=== PATIENT | female | born 1940 | race Caucasian/White ===

== ENCOUNTER → 2016-08-08 | Outpatient (CLI) | payer MEDICARE, BC ==
[~2016-08-08] MED LIST: ALLOPURINOL PO; ALLOPURINOL300 MG PO; ANTIVERT 25MG25 MG PO; APRESOLINE 10MG10 MG PO; APRESOLINE 25MG25 MG PO; ASPIR-LOW81 MG PO; ASPIRIN E.C. 8181 MG PO; BENICAR40 MG PO; BUPROPION300 MG PO; CAL-CITRATE PLU1 TAB PO; CATAPRES 0.1MG0.1 MG PO; CATAPRES-TTS 10.1 M1 TD; CELEXA PO; CEPHALEXIN500 M1 PO; CIPRO 500MG TA500 MG PO; CLOPIDOGREL PO; COLACE 100100 MG/CAP PO; COREG 25MG25 MG/TAB PO; COREG12.5 MG PO; COUMADIN 1MG1 MG/TAB PO; DARVOCET N 101 UDTAB PO; DARVOCET-N-101 UDTAB PO; DETROL LA4 PO; DIOVAN 160MG160 MG PO; FAMILY PHARMAC0.4 MG PO; FOLIC ACID 40400 MCG PO; FUROSEMIDE20 MG PO; GLUCOSAMINE SULFATE PO; HCTZ 25MG25 MG PO; HYTRIN1 MG PO; HYTRIN2 M1 PO; Hydrocodone PO; IMDUR 60MG60 MG/TAB PO; IMDUR PO; IMDUR120 MG PO; ISOSORBIDE MONO PO; ISOSORBIDE MONO60 MG PO; K-DUR20 MEQ PO; K-LOR CON PO; K-TAB20 PO; LABETALOL300 MG PO; LAMICTAL 100MG100 MG PO; LAMICTAL1 TAB PO; LASIX 20MG TABL20 MG PO; LASIX 40MG TABL40 MG PO; MELOXICAM15 MG PO; MILLIPRED DP5 MG PO; MIRALAX PA17 GM/Dose PO; MONOKET20 MG PO; NITROQUICK0.4 MG SL; NITROSTAT0.4 MG/TAB SL; NORCO 325 MG-101 TAB PO; NORCO 325 MG-51 TAB PO; NORMODYNE300 MG PO; PAXIL 20MG20 MG PO; PERCOCET 325 MG1 TA2 PO; PHENERGAN25 MG/ML IV; PLAVIX 75MG TAB75 MG PO; POTASSIUM CHLO10 ME3 PO; PRINIVIL10 MG PO; PRINIVIL20 MG PO; PRINIVIL40 MG PO; PROCARDIA XL 3030 MG PO; PROVENTIL0.09 MG/A1 IH; Phenergan PO; ROXICODONE 55 MG/TAB PO; SYNTHROID0.05 MG/TA PO; TERAZOSIN HCL PO; TRANDATE300 MG PO; TRICOR145 MG PO; TRILIPIX 135MG PO; ULTRAM 50MG TAB50 MG PO; VENTOLIN0.09 MG IH; VITAMIN D1000 IU PO; WELLBUTRIN PO; WELLBUTRIN SR150 M1 PO; WELLBUTRIN XL150 MG PO; WELLBUTRIN XL300 M1 PO; WELLBUTRIN XL300 MG PO; ZITHROMAX 250M250 MG PO; ZOFRAN4 M1 PO; trilipix PO
== END ==
LOC: BHSO 14:47
DX: F31.81 Bipolar II disorder (principal)

== ENCOUNTER 2016-09-09 20:12 | Emergency (ER) | payer MEDICARE, BC ==
[~2016-09-09] VITALS: Ht 157.5 cm; Wt 58.2 kg
[~2016-09-09 20:12] MED LIST changes: -DIOVAN 160MG160 MG PO; -K-DUR20 MEQ PO; -MONOKET20 MG PO; -PERCOCET 325 MG1 TA2 PO; -ROXICODONE 55 MG/TAB PO; -SYNTHROID0.05 MG/TA PO; -ULTRAM 50MG TAB50 MG PO; -VENTOLIN0.09 MG IH
[2016-09-09 20:15] VITALS: TEMP 97.1
[2016-09-09] MEDS ORDERED: MONOKET20 MG PO (20:24)
[2016-09-09] MEDS ORDERED: SYNTHROID0.05 MG/TA PO (20:25)
[2016-09-09] MEDS ORDERED: VENTOLIN0.09 MG IH (20:26)
[2016-09-09 20:56] LABS: BASO % 0.3 % (0.0-2.0); EOS # 0.3 (0.0-0.7); EOS % 2.2 % (0-4.0); GRAN # 10.3 (1.4-6.5); GRAN % 80.8 % (42.2-75.2); MEAN CELL VOLUME 92 fl (80.0-100.0); MEAN CORPUSCULAR HGB CONC 34 g/dl (33.0-37.0); MEAN PLATELET VOLUME 10.9 fl (7.4-10.4); MONO % 8.1 % (1.7-9.3); PLATELET COUNT 230 K/mm3 (130-400); RED BLOOD COUNT 3.77 M/mm3 (4.10-5.30); REDCELL DISTRIBUTION WIDTH-CV 11.7 % (11.5-14.5); WHITE BLOOD COUNT 12.7 K/mm3 (4.8-10.8)
[2016-09-09 20:59] LABS: HEMATOCRIT 34.5 % (37.0-47.0); HEMOGLOBIN 11.7 g/dl (12.5-16.0); MEAN CORPUSCULAR HEMOGLOBIN 31 pg (27.0-31.0)
[2016-09-09 21:28] LABS: CALCIUM 9.5 mg/dL (8.4-10.2); CREATININE, serum 1.33 mg/dL (0.52-1.25)
[2016-09-09 22:21] LABS: PH 8 (5-8); SQUAMOUS EPITHELIAL None Seen /hpf; URINE APPEARANCE Cloudy; URINE BACTERIA Rare /hpf; URINE BILIRUBIN Negative (NEGATIVE); URINE BLOOD 2+ (NEGATIVE); URINE COLOR Yellow; URINE GLUCOSE Negative (NEGATIVE); URINE KETONE Negative (NEGATIVE); URINE RBC >50 /hpf; URINE UROBILINOGEN Negative (NEGATIVE)
[2016-09-09] MEDS ORDERED: ROXICODONE 55 MG/TAB PO (22:48)
[2016-09-09 23:02] VITALS: BP 162/70; PULSE 86
[2017-03-02] MEDS ORDERED: LASIX 20MG TABL20 MG PO (08:55)
[2017-03-02] MEDS ORDERED: IMDUR 60MG60 MG/TAB PO (08:59)
[2017-03-02] MEDS ORDERED: PROCARDIA XL 3030 MG PO (09:01)
[2017-03-02] MEDS ORDERED: DIOVAN 160MG160 MG PO (09:02)
== END 2016-09-09 23:05 | disposition home or self-care (01) ==
LOC: COL.ER 20:12
PROVIDERS: Emergency Medicine
DX: R10.31 Right lower quadrant pain (principal); N28.89 Other specified disorders of kidney and ureter; Z90.5 Acquired absence of kidney; I10 Essential (primary) hypertension
CPT/HCPCS: J1170; J2270; J2405; J7040

== ENCOUNTER 2016-09-21 05:32 | Day surgery (SDC) | payer MEDICARE, BC ==
[~2016-09-21] VITALS: Ht 157.5 cm; Wt 59.3 kg
[2016-09-21] VITALS (8 sets, daily range): BP systolic 132–140; BP diastolic 46–59; PULSE 62–77; TEMP 97.6–97.8
[~2016-09-21 05:32] MED LIST changes: +MONOKET20 MG PO; +ROXICODONE 55 MG/TAB PO; +SYNTHROID0.05 MG/TA PO; +VENTOLIN0.09 MG IH
[2016-09-21] MEDS ORDERED: WELLBUTRIN SR150 M1 PO (06:30)
[2016-09-21] MEDS ORDERED: K-DUR20 MEQ PO (06:35)
[2017-03-02] MEDS ORDERED: LASIX 20MG TABL20 MG PO (08:55)
[2017-03-02] MEDS ORDERED: IMDUR 60MG60 MG/TAB PO (08:59)
[2017-03-02] MEDS ORDERED: PROCARDIA XL 3030 MG PO (09:01)
[2017-03-02] MEDS ORDERED: DIOVAN 160MG160 MG PO (09:02)
== END 2016-09-21 12:30 | disposition home or self-care (01) ==
LOC: SDCO 05:32
DX: Q62.11 Congenital occlusion of ureteropelvic junction (principal); I10 Essential (primary) hypertension; Z86.14 Personal history of Methicillin resistant Staphylococcus aureus infection; Z86.73 Personal history of transient ischemic attack (TIA), and cerebral infarction without residual deficits; Z95.5 Presence of coronary angioplasty implant and graft; Z79.82 Long term (current) use of aspirin; Z79.02 Long term (current) use of antithrombotics/antiplatelets; Z79.899 Other long term (current) drug therapy
CPT/HCPCS: C1769; C2617; J0690; J1100; J1940; J2405; J2704; J3010; J7120

== ENCOUNTER → 2016-10-10 | Outpatient (CLI) | payer MEDICARE, BC ==
[~2016-10-10] MED LIST changes: +DIOVAN 160MG160 MG PO; +K-DUR20 MEQ PO; +PERCOCET 325 MG1 TA2 PO; +ULTRAM 50MG TAB50 MG PO
== END ==
LOC: BHSO 14:04
DX: F41.1 Generalized anxiety disorder (principal)

== ENCOUNTER → 2016-11-20 | Outpatient (CLI) | payer MEDICARE, BC | LOC: BHSO 15:17 | DX: F31.73 Bipolar disorder, in partial remission, most recent episode manic (principal) ==

== ENCOUNTER 2016-11-22 18:49 | Emergency (ER) | payer MEDICARE, BC ==
[~2016-11-22] VITALS: Ht 154.9 cm; Wt 62.3 kg
[~2016-11-22 18:49] MED LIST changes: -DIOVAN 160MG160 MG PO; -PERCOCET 325 MG1 TA2 PO; -ULTRAM 50MG TAB50 MG PO
[2016-11-22 18:52] VITALS: TEMP 97.9
[2016-11-22 19:54] LABS: BASO % 0.3 % (0.0-2.0); EOS # 0.2 (0.0-0.7); EOS % 2.5 % (0-4.0); GRAN # 5.7 (1.4-6.5); GRAN % 64.7 % (42.2-75.2); LYMPH # 1.7 (1.2-3.4); LYMPH % 19.2 % (20.0-51.0); MEAN CELL VOLUME 92 fl (80.0-100.0); MEAN CORPUSCULAR HGB CONC 34 g/dl (33.0-37.0); MEAN PLATELET VOLUME 11.5 fl (7.4-10.4); MONO % 11.7 % (1.7-9.3); PLATELET COUNT 230 K/mm3 (130-400); RED BLOOD COUNT 3.55 M/mm3 (4.10-5.30); REDCELL DISTRIBUTION WIDTH-CV 12.4 % (11.5-14.5); WHITE BLOOD COUNT 8.8 K/mm3 (4.8-10.8)
[2016-11-22 19:58] LABS: HEMATOCRIT 32.5 % (37.0-47.0); MEAN CORPUSCULAR HEMOGLOBIN 31 pg (27.0-31.0)
[2016-11-22 20:05] LABS: ADJUSTED CALCIUM 8.7 mg/dL (8.4-10.2); ALANINE AMINOTRANSFERASE 22 U/L (9-52); ALKALINE PHOSPHATASE 114 U/L (50-136); ANION GAP 11 mmol/L (7-16); BILIRUBIN,TOTAL 0.5 mg/dL (0.0-1.0); BLOOD UREA NITROGEN 46 mg/dL (7-17); CALCIUM 8.7 mg/dL (8.4-10.2); CARBON DIOXIDE 21 mmol/L (22-30); CHLORIDE 91 mmol/L (98-107); CREATININE, serum 1.41 mg/dL (0.52-1.25); GLUCOSE 86 mg/dL (74-106); LIPASE 107 U/L (23-300); POTASSIUM 4.3 mmol/L (3.4-5.0); SODIUM 123 mmol/L (137-145); TOTAL PROTEIN 6.8 gm/dL (6.4-8.2)
[2016-11-22 20:18] LABS: TROPONIN-I < 0.012 ng/mL (0.000-0.034)
[2016-11-22] MEDS ORDERED: ULTRAM 50MG TAB50 MG PO (22:07)
[2016-11-22] MEDS ORDERED: PERCOCET 325 MG1 TA2 PO (22:07)
[2016-11-22 22:59] VITALS: BP 179/73; PULSE 66
[2017-03-02] MEDS ORDERED: LASIX 20MG TABL20 MG PO (08:55)
[2017-03-02] MEDS ORDERED: IMDUR 60MG60 MG/TAB PO (08:59)
[2017-03-02] MEDS ORDERED: PROCARDIA XL 3030 MG PO (09:01)
[2017-03-02] MEDS ORDERED: DIOVAN 160MG160 MG PO (09:02)
== END 2016-11-22 23:03 | disposition home or self-care (01) ==
LOC: COL.ER 18:49
PROVIDERS: Emergency Medicine
DX: I20.8 Other forms of angina pectoris (principal); E87.1 Hypo-osmolality and hyponatremia; I25.10 Atherosclerotic heart disease of native coronary artery without angina pectoris; I10 Essential (primary) hypertension; J45.909 Unspecified asthma, uncomplicated; Z95.5 Presence of coronary angioplasty implant and graft; Z98.890 Other specified postprocedural states
CPT/HCPCS: J1170; J7030

== ENCOUNTER → 2016-12-27 | Outpatient (CLI) | payer MEDICARE, BC ==
[~2016-12-27] VITALS: Ht 154.9 cm; Wt 62.3 kg
[~2016-12-27] MED LIST changes: +DIOVAN 160MG160 MG PO; +PERCOCET 325 MG1 TA2 PO; +ULTRAM 50MG TAB50 MG PO
[2016-12-27 12:28] VITALS: BP 120/40; PULSE 60
[2016-12-27 13:20] VITALS: BP 137/63; PULSE 62
[2016-12-27 14:00] VITALS: BP 138/65; PULSE 65
== END ==
LOC: COL.RAD 11:29
DX: M19.011 Primary osteoarthritis, right shoulder (principal); M94.8X1 Other specified disorders of cartilage, shoulder; S43.491A Other sprain of right shoulder joint, initial encounter; M25.711 Osteophyte, right shoulder; M25.411 Effusion, right shoulder; M75.21 Bicipital tendinitis, right shoulder; M62.511 Muscle wasting and atrophy, not elsewhere classified, right shoulder; S22.080A Wedge compression fracture of T11-T12 vertebra, initial encounter for closed fracture; M70.61 Trochanteric bursitis, right hip; S32.030A Wedge compression fracture of third lumbar vertebra, initial encounter for closed fracture; M75.81 Other shoulder lesions, right shoulder; M75.51 Bursitis of right shoulder; I34.0 Nonrheumatic mitral (valve) insufficiency; M67.813 Other specified disorders of tendon, right shoulder; Z96.641 Presence of right artificial hip joint; Z90.12 Acquired absence of left breast and nipple; Z96.652 Presence of left artificial knee joint; Z90.5 Acquired absence of kidney; Z98.890 Other specified postprocedural states; Z98.1 Arthrodesis status; Z95.828 Presence of other vascular implants and grafts; Z85.3 Personal history of malignant neoplasm of breast; Z90.710 Acquired absence of both cervix and uterus; Z85.828 Personal history of other malignant neoplasm of skin
CPT/HCPCS: G9654; J2704; J3010; J7120

== ENCOUNTER → 2017-01-08 | Outpatient (CLI) | payer MEDICARE, BC | LOC: BHSO 15:24 | DX: F33.1 Major depressive disorder, recurrent, moderate (principal) ==

== ENCOUNTER → 2017-01-29 | Outpatient (CLI) | payer MEDICARE, BC | LOC: COL.RAD 13:25 | DX: M25.511 Pain in right shoulder (principal) ==

== ENCOUNTER 2017-03-08 08:00 | Outpatient (RCR) | payer MEDICARE, BC ==
[2017-03-02 08:53] VITALS: BP 143/50; PULSE 63; TEMP 98
[2017-03-03 08:23] VITALS: BP 123/48; PULSE 59; TEMP 98
[2017-03-04 08:19] VITALS: BP 140/57; PULSE 60; TEMP 97.6
[2017-03-05 08:42] VITALS: BP 119/68; PULSE 61; TEMP 97.8
[2017-03-06 08:21] VITALS: BP 144/69; PULSE 60; TEMP 98
[2017-03-07 08:10] VITALS: BP 118/55; PULSE 67; TEMP 98.2
[~2017-03-08] VITALS: Ht 154.9 cm; Wt 61.3 kg
[2017-03-08 08:23] VITALS: BP 129/51; PULSE 63; TEMP 97.7
== END 2017-03-08 08:55 | disposition home or self-care (01) ==
LOC: EUO 08:00
DX: N39.0 Urinary tract infection, site not specified (principal)
CPT/HCPCS: J1335

== ENCOUNTER → 2017-03-27 | Outpatient (CLI) | payer MEDICARE, BC | LOC: BHSO 13:06 | DX: F31.73 Bipolar disorder, in partial remission, most recent episode manic (principal) ==

== ENCOUNTER → 2017-06-19 | Outpatient (CLI) | payer MEDICARE, BC ==
[~2017-06-19] MED LIST changes: +CEFTIN 250250 MG/TAB PO; +ZOFRAN 4MG T4 MG/TAB PO
== END ==
LOC: BHSO 13:19
DX: F41.1 Generalized anxiety disorder (principal)

== ENCOUNTER 2017-07-23 19:02 | Emergency (ER) | payer MEDICARE, BC ==
[~2017-07-23] VITALS: Ht 154.9 cm; Wt 61.4 kg
[2017-07-23 19:04] VITALS: TEMP 98.1
[2017-07-23 19:38] LABS: BASO % 0.3 % (0.0-2.0); EOS # 0.2 (0.0-0.7); GRAN # 5.5 (1.4-6.5); LYMPH % 14.1 % (20.0-51.0); MEAN CELL VOLUME 94 fl (80.0-100.0); MEAN CORPUSCULAR HGB CONC 33 g/dl (33.0-37.0); MEAN PLATELET VOLUME 12.7 fl (7.4-10.4); MONO # 0.5 (0.1-0.6); MONO % 7.2 % (1.7-9.3); PLATELET COUNT 168 K/mm3 (130-400); RED BLOOD COUNT 3.73 M/mm3 (4.10-5.30); REDCELL DISTRIBUTION WIDTH-CV 12.6 % (11.5-14.5)
[2017-07-23 19:39] LABS: HEMATOCRIT 35.2 % (37.0-47.0); HEMOGLOBIN 11.6 g/dl (12.5-16.0); MEAN CORPUSCULAR HEMOGLOBIN 31 pg (27.0-31.0)
[2017-07-23 19:47] LABS: ALANINE AMINOTRANSFERASE 30 U/L (9-52); ALBUMIN 4.2 gm/dL (3.5-5.0); ALKALINE PHOSPHATASE 135 U/L (50-136); ANION GAP 9 mmol/L (7-16); AST,SGOT 25 U/L (15-37); BILIRUBIN,TOTAL 0.5 mg/dL (0.0-1.0); BLOOD UREA NITROGEN 23 mg/dL (7-17); CALCIUM 9.4 mg/dL (8.4-10.2); CARBON DIOXIDE 25 mmol/L (22-30); CHLORIDE 103 mmol/L (98-107); CREATININE, serum 1.28 mg/dL (0.52-1.25); GLUCOSE 109 mg/dL (74-106); POTASSIUM 4.3 mmol/L (3.4-5.0); SODIUM 137 mmol/L (137-145); TOTAL PROTEIN 7.2 gm/dL (6.4-8.2)
[2017-07-23 19:59] LABS: TROPONIN-I < 0.012 ng/mL (0.000-0.034)
[2017-07-23 21:23] VITALS: BP 179/80; PULSE 66
== END 2017-07-23 21:42 | disposition home or self-care (01) ==
LOC: COL.ER 19:02
PROVIDERS: Emergency Medicine
DX: S06.0X0A Concussion without loss of consciousness, initial encounter (principal); S20.219A Contusion of unspecified front wall of thorax, initial encounter; S00.83XA Contusion of other part of head, initial encounter; I10 Essential (primary) hypertension; W01.198A Fall on same level from slipping, tripping and stumbling with subsequent striking against other object, initial encounter; Y92.009 Unspecified place in unspecified non-institutional (private) residence as the place of occurrence of the external cause

== ENCOUNTER → 2017-08-03 | Outpatient (CLI) | payer MEDICARE, BC | LOC: COL.CARD 09:53 | DX: S06.0X9A Concussion with loss of consciousness of unspecified duration, initial encounter (principal); W19.XXXA Unspecified fall, initial encounter; Z53.8 Procedure and treatment not carried out for other reasons ==

== ENCOUNTER → 2017-08-10 | Outpatient (CLI) | payer MEDICARE, BC | LOC: COL.CARD 09:58 | DX: S06.0X9A Concussion with loss of consciousness of unspecified duration, initial encounter (principal); W19.XXXA Unspecified fall, initial encounter ==

== ENCOUNTER → 2017-08-28 | Outpatient (CLI) | payer MEDICARE, BC | LOC: BHSO 13:19 | DX: F33.41 Major depressive disorder, recurrent, in partial remission (principal) | CPT/HCPCS: G0463 ==

== ENCOUNTER → 2017-09-24 | Outpatient (CLI) | payer MEDICARE, BC | LOC: MC.RAD 08-23 13:00 | DX: N63.11 Unspecified lump in the right breast, upper outer quadrant (principal); Z85.3 Personal history of malignant neoplasm of breast ==

== ENCOUNTER → 2017-12-07 | Outpatient (CLI) | payer MEDICARE, BC | LOC: BHSO 10:44 | DX: F33.41 Major depressive disorder, recurrent, in partial remission (principal) | CPT/HCPCS: G0463 ==

== ENCOUNTER → 2017-12-31 | Outpatient (CLI) | payer MEDICARE, BC | LOC: MC.RAD 12:59 | DX: C50.411 Malignant neoplasm of upper-outer quadrant of right female breast (principal); Z98.890 Other specified postprocedural states ==

== ENCOUNTER → 2018-01-11 | Outpatient (CLI) | payer MEDICARE, BC ==
[~2018-01-11] VITALS: Ht 154.9 cm; Wt 65.0 kg
[~2018-01-11] MED LIST changes: +VITAMIN D 50,1.25 MG PO
[2018-01-11 12:01] VITALS: BP 151/77; PULSE 74
[2018-01-11 13:35] VITALS: BP 124/78; PULSE 76
[2018-01-11 13:45] VITALS: BP 147/81; PULSE 72
[2018-01-11 14:00] VITALS: BP 164/81; PULSE 75
== END ==
LOC: COL.RAD 11:37
DX: M75.122 Complete rotator cuff tear or rupture of left shoulder, not specified as traumatic (principal); S46.812A Strain of other muscles, fascia and tendons at shoulder and upper arm level, left arm, initial encounter; S43.082A Other subluxation of left shoulder joint, initial encounter; Z90.10 Acquired absence of unspecified breast and nipple; Z96.641 Presence of right artificial hip joint; Z96.652 Presence of left artificial knee joint; Z98.890 Other specified postprocedural states
CPT/HCPCS: J2704

== ENCOUNTER 2018-04-26 09:54 | Inpatient (IN) | payer MEDICARE, BC ==
[~2018-04-26] VITALS: Ht 154.9 cm; Wt 62.8 kg
[2018-06-19] VITALS (11 sets, daily range): BP systolic 105–188; BP diastolic 52–76; PULSE 57–76; TEMP 98–98.5
[2018-06-19] MEDS ORDERED: MIRALAX PA17 GM/Dose PO (08:54)
[2018-06-19] MEDS ORDERED: ATACAND 16M16 MG/TAB PO (08:54)
[2018-06-19] MEDS ORDERED: COREG 25MG25 MG/TAB PO (16:38)
[2018-06-20 00:39] VITALS: BP 162/64; PULSE 72
[2018-06-20 05:07] VITALS: BP 186/79; PULSE 86; TEMP 98.3
[2018-06-20 06:14] LABS: HEMOGLOBIN 11.5 g/dl (12.5-16.0)
[2018-06-20 06:21] LABS: HEMATOCRIT 34.6 % (37.0-47.0)
[2018-06-20 07:37] VITALS: BP 170/71; PULSE 83; TEMP 98.9
[2018-06-20 12:11] VITALS: BP 126/50; PULSE 63; TEMP 98
[2018-06-20 13:40] LABS: ALBUMIN 3.8 gm/dL (3.5-5.0); BILIRUBIN,TOTAL 0.7 mg/dL (0.0-1.0); CALCIUM 8.8 mg/dL (8.4-10.2); CREATININE, serum 0.95 mg/dL (0.52-1.25); TOTAL PROTEIN 6.9 gm/dL (6.4-8.2)
[2018-06-20 16:39] VITALS: BP 126/78; PULSE 78; TEMP 98.6
[2018-06-20 20:06] VITALS: BP 165/68; PULSE 72; TEMP 98.5
[2018-06-21 03:06] VITALS: BP 147/51; PULSE 79; TEMP 98.2
[2018-06-21 07:31] VITALS: BP 144/58; PULSE 75; TEMP 99.5
[2018-06-21 11:16] VITALS: BP 103/42; PULSE 66; TEMP 97.8
[2018-06-21 15:31] VITALS: BP 101/42; PULSE 64; TEMP 98.6
[2018-06-21] MEDS ORDERED: ASPI325T6 PO (17:01)
[2018-06-21] MEDS ORDERED: LYRICA 50MG CAP50 MG PO (17:02)
[2018-06-21] MEDS ORDERED: ZANTAC 150MG T150 MG PO (17:03)
[2018-06-21] MEDS ORDERED: PLAVIX 75MG TAB75 MG PO (17:12)
[2018-06-21 19:38] VITALS: BP 115/44; PULSE 67; TEMP 98.2
[2018-06-22 03:29] VITALS: BP 108/42; PULSE 67; TEMP 98.5
[2018-06-22 08:55] VITALS: BP 134/53; PULSE 78; TEMP 98.2
[2018-06-22 09:24] VITALS: BP 134/53; PULSE 78; TEMP 98.2
== END 2018-06-22 10:25 | DRG 470 ==
LOC: JCC 06-19 07:50
PROVIDERS: Nurse Practitioner Family; Orthopaedic Surgery
PROC: 0SRC0J9 Replacement of Right Knee Joint with Synthetic Substitute, Cemented, Open Approach (ICD-10-PCS; principal; 2018-06-19 13:15)
DX: M17.11 Unilateral primary osteoarthritis, right knee (principal); I10 Essential (primary) hypertension; E78.5 Hyperlipidemia, unspecified; I25.10 Atherosclerotic heart disease of native coronary artery without angina pectoris; J45.909 Unspecified asthma, uncomplicated; Z85.3 Personal history of malignant neoplasm of breast; Z85.828 Personal history of other malignant neoplasm of skin; Z90.5 Acquired absence of kidney
CPT/HCPCS: A4314; A9284; C1713; C1776; J0690; J1170; J2250; J2270; J2704; J7120

== ENCOUNTER → 2018-06-05 | Outpatient (CLI) | payer MEDICARE, BC | LOC: COL.VAS 11:10 | DX: I10 Essential (primary) hypertension (principal); I34.0 Nonrheumatic mitral (valve) insufficiency; I07.1 Rheumatic tricuspid insufficiency ==

== ENCOUNTER → 2018-06-10 | Outpatient (CLI) | payer MEDICARE, BC ==
[2018-06-10 12:35] LABS: HIV 1/2 Antibodies Non-Reactive; HIV-1p24 Antigen Non-Reactive
== END ==
LOC: COL.LAB 11:33
PROVIDERS: Orthopaedic Surgery
DX: Z01.812 Encounter for preprocedural laboratory examination (principal); M17.11 Unilateral primary osteoarthritis, right knee

== ENCOUNTER 2018-07-21 13:07 | Emergency (ER) | payer MEDICARE, BC ==
[~2018-07-21] VITALS: Ht 154.9 cm; Wt 63.6 kg
[~2018-07-21 13:07] MED LIST changes: +ASPI325T6 PO; +ATACAND 16M16 MG/TAB PO; +LYRICA 50MG CAP50 MG PO; +ZANTAC 150MG T150 MG PO
[2018-07-21 13:29] VITALS: TEMP 97.9
[2018-07-21] MEDS ORDERED: LIDODERM 5% PATC1 EA TP (14:03)
[2018-07-21 14:19] LABS: BASO % 0.7 % (0.0-2.0); EOS # 0.2 (0.0-0.7); EOS % 4.1 % (0-4.0); GRAN # 3.9 (1.4-6.5); GRAN % 65.6 % (42.2-75.2); HEMATOCRIT 36.7 % (37.0-47.0); HEMOGLOBIN 11.8 g/dl (12.5-16.0); LYMPH # 1.1 (1.2-3.4); LYMPH % 19.2 % (20.0-51.0); MEAN CELL VOLUME 95 fl (80.0-100.0); MEAN CORPUSCULAR HEMOGLOBIN 31 pg (27.0-31.0); MEAN CORPUSCULAR HGB CONC 32 g/dl (33.0-37.0); MEAN PLATELET VOLUME 12.1 fl (7.4-10.4); MONO # 0.6 (0.1-0.6); MONO % 10.2 % (1.7-9.3); PLATELET COUNT 201 K/mm3 (130-400); RED BLOOD COUNT 3.87 M/mm3 (4.10-5.30); REDCELL DISTRIBUTION WIDTH-CV 13.1 % (11.5-14.5)
[2018-07-21 14:25] LABS: INR 1.1 (0.8-3.0); PROTHROMBIN TIME 12.7 SECONDS (9.7-12.8)
[2018-07-21 14:28] LABS: ALANINE AMINOTRANSFERASE 16 U/L (9-52); ALBUMIN 4.5 gm/dL (3.5-5.0); ALKALINE PHOSPHATASE 154 U/L (50-136); ANION GAP 11 mmol/L (7-16); AST,SGOT 31 U/L (15-37); BILIRUBIN,TOTAL 0.6 mg/dL (0.0-1.0); BLOOD UREA NITROGEN 18 mg/dL (7-17); CARBON DIOXIDE 27 mmol/L (22-30); CHLORIDE 99 mmol/L (98-107); CREATININE, serum 1.27 mg/dL (0.52-1.25); GLUCOSE 89 mg/dL (74-106); LIPASE 103 U/L (23-300); POTASSIUM 4.2 mmol/L (3.4-5.0); SODIUM 137 mmol/L (137-145); TOTAL PROTEIN 8.1 gm/dL (6.4-8.2)
[2018-07-21 14:40] LABS: TROPONIN-I < 0.012 ng/mL (0.000-0.034)
[2018-07-21] MEDS ORDERED: FLEXERIL 1010 MG/TAB PO (20:17)
[2018-07-21 20:41] VITALS: BP 176/85; PULSE 71
== END 2018-07-21 20:56 | disposition home or self-care (01) ==
LOC: COL.ER 13:07
PROVIDERS: Emergency Medicine
DX: M54.6 Pain in thoracic spine (principal); I25.10 Atherosclerotic heart disease of native coronary artery without angina pectoris; Z95.5 Presence of coronary angioplasty implant and graft; Z79.02 Long term (current) use of antithrombotics/antiplatelets
CPT/HCPCS: J1170; J2060; J7030; Q9967

== ENCOUNTER → 2018-09-03 | Outpatient (CLI) | payer MEDICARE, BC ==
[~2018-09-03] VITALS: Ht 154.9 cm; Wt 62.1 kg
[~2018-09-03] MED LIST changes: +ASPIRIN 81M81 MG/TA2 PO; +FLEXERIL 1010 MG/TAB PO; +LIDODERM 5% PATC1 EA TP; +TOPROL XL 25MG25 MG PO
[2018-09-03 12:20] VITALS: BP 173/85; PULSE 71
[2018-09-03 13:25] VITALS: BP 139/80; PULSE 72
[2018-09-03 13:40] VITALS: BP 164/79; PULSE 75
== END ==
LOC: COL.RAD 08-28 09:00
DX: M47.814 Spondylosis without myelopathy or radiculopathy, thoracic region (principal); S22.080A Wedge compression fracture of T11-T12 vertebra, initial encounter for closed fracture
CPT/HCPCS: J2704

== ENCOUNTER → 2018-09-30 | Outpatient (CLI) | payer MEDICARE, BC | LOC: BHSO 15:29 | DX: F33.41 Major depressive disorder, recurrent, in partial remission (principal) | CPT/HCPCS: G0463 ==

== ENCOUNTER 2019-05-02 06:48 | Observation (INO) | payer MEDICARE, BC ==
[2019-05-02] VITALS (11 sets, daily range): BP systolic 141–184; BP diastolic 55–81; PULSE 75–95; TEMP 97.7–98.9
[~2019-05-02] VITALS: Ht 156.2 cm; Wt 66.2 kg
[2019-05-02 07:15] LABS: BASO % 0.2 % (0.0-2.0); EOS # 0.3 (0.0-0.7); EOS % 3.3 % (0-4.0); GRAN # 6.6 (1.4-6.5); GRAN % 67.1 % (42.2-75.2); HEMATOCRIT 38.6 % (37.0-47.0); HEMOGLOBIN 12.7 g/dl (12.5-16.0); LYMPH # 1.5 (1.2-3.4); LYMPH % 15.3 % (20.0-51.0); MEAN CELL VOLUME 99 fl (80.0-100.0); MEAN CORPUSCULAR HEMOGLOBIN 33 pg (27.0-31.0); MEAN CORPUSCULAR HGB CONC 33 g/dl (33.0-37.0); MEAN PLATELET VOLUME 12.5 fl (7.4-10.4); MONO # 1.3 (0.1-0.6); MONO % 13.4 % (1.7-9.3); PLATELET COUNT 180 K/mm3 (130-400); REDCELL DISTRIBUTION WIDTH-CV 12.7 % (11.5-14.5)
[2019-05-02 07:27] LABS: ALANINE AMINOTRANSFERASE 11 U/L (9-52); ALKALINE PHOSPHATASE 146 U/L (50-136); ANION GAP 8 mmol/L (7-16); AST,SGOT 25 U/L (15-37); BILIRUBIN,TOTAL 0.3 mg/dL (0.0-1.0); BLOOD UREA NITROGEN 23 mg/dL (7-17); CALCIUM 9.1 mg/dL (8.4-10.2); CARBON DIOXIDE 26 mmol/L (22-30); CHLORIDE 103 mmol/L (98-107); CREATININE, serum 1.23 (0.52-1.25); GLUCOSE 95 mg/dL (74-106); LIPASE 115 U/L (23-300); POTASSIUM 4.5 mmol/L (3.4-5.0); SODIUM 138 mmol/L (137-145); TOTAL PROTEIN 6.9 gm/dL (6.4-8.2)
[2019-05-02 07:29] LABS: PROTHROMBIN TIME 11.3 SECONDS (9.7-12.8)
[2019-05-02 07:31] LABS: PARTIAL THROMBOPLASTIN TIME 31.1 SECONDS (26.0-37.0)
[2019-05-02 07:41] LABS: TROPONIN-I < 0.012 ng/mL (0.000-0.035)
--- NOTE | 2019-05-02 20:30 | NUR ---
PT LAYING IN BED. ASSESSMENT COMPLETE. VITALS WNL. PT ASKED QUESTION REGARDING DISCHARGE. NO FURTHER CONCERNS AT THIS TIME. CALL LIGHT AND PERSONAL BELONGINGS WITHIN REACH.
[2019-05-03 03:31] VITALS: BP 157/55; PULSE 86; TEMP 98.3
--- NOTE | 2019-05-03 08:05 | NUR ---
Pt report given to Bobby LIRA. Pt had an uneventfull night. No c/o of pain or discomfort. Hand off complete, no further concerns at this time.
[2019-05-03 08:26] VITALS: BP 155/67; PULSE 68; TEMP 98
--- NOTE | 2019-05-03 09:48 | NUR ---
Pt awake and alert upon entry eating breakfast, some C/O pain in lower back, expresses desire to return home, shift assessment complete, Left Pt call light in reach, bed in lowest position.
--- NOTE | 2019-05-03 10:12 | NUR ---
SW met with the patient to discuss discharge plan. The patient lives in [place] with her life partner of six years, Hans Ruano (ph#[phone]). She states that Hans is in [place] right now. She reports independence with ADLs and does not have any DME. The patient's PCP is Dr. Sunny Snell and she receives her medications at [facility]. She reports no difficulties obtaining her meds. The patient does not have advanced directives in EMR, but she states that she does have them completed and at home. She states that she designated her son, Matthew (ph#[phone]), and her daughter, Mignon. The patient plans to return home upon discharge. No additional needs at this time.
[2019-05-03 11:51] VITALS: BP 129/62; PULSE 75; TEMP 98.2
--- NOTE | 2019-05-03 11:55 | NUR ---
Numerical Control Router Operator offered to pray but nothing needed at this time. Patient was waiting to be discharged.
--- NOTE | 2019-05-03 12:31 | NUR ---
Pt discharged to home, escorted to entrance, left in private auto.
== END 2019-05-03 12:32 | disposition home or self-care (01) ==
LOC: COL.ER 06:48 → MEDICAL 08:36
PROVIDERS: Emergency Medicine; ADMIT Student in an Organized Health Care Education/Training Program
DX: I25.10 Atherosclerotic heart disease of native coronary artery without angina pectoris (principal); I10 Essential (primary) hypertension; M51.36 Other intervertebral disc degeneration, lumbar region; K21.9 Gastro-esophageal reflux disease without esophagitis; Z90.5 Acquired absence of kidney; Z85.3 Personal history of malignant neoplasm of breast; Z95.1 Presence of aortocoronary bypass graft; J45.909 Unspecified asthma, uncomplicated; Z90.710 Acquired absence of both cervix and uterus; Z96.641 Presence of right artificial hip joint; Z96.651 Presence of right artificial knee joint; Z96.652 Presence of left artificial knee joint; Z79.02 Long term (current) use of antithrombotics/antiplatelets; Z79.891 Long term (current) use of opiate analgesic
CPT/HCPCS: 99222-AI; A9500; G0378; J1644; J2785

== ENCOUNTER → 2019-05-19 | Outpatient (CLI) | payer MEDICARE, BC | LOC: BHSO 10:56 | DX: F33.42 Major depressive disorder, recurrent, in full remission (principal) | CPT/HCPCS: G0463 ==

== ENCOUNTER → 2020-01-05 | Outpatient (CLI) | payer MEDICARE, BC | LOC: BHSO 13:17 | DX: F41.1 Generalized anxiety disorder (principal) | CPT/HCPCS: G0463 ==

== ENCOUNTER → 2020-03-17 | Outpatient (CLI) | payer MEDICARE, BC | LOC: BHSO 13:03 | DX: F33.41 Major depressive disorder, recurrent, in partial remission (principal) | CPT/HCPCS: G0463 ==

== ENCOUNTER 2021-05-03 15:57 | Emergency (ER) | payer MEDICARE, BC ==
[~2021-05-03] VITALS: Ht 154.9 cm; Wt 64.5 kg
[2021-05-03 15:58] VITALS: TEMP 98
[2021-05-03 17:24] VITALS: BP 188/86; PULSE 76
== END 2021-05-03 17:24 | disposition home or self-care (01) ==
LOC: COL.ER 15:57
DX: S00.83XA Contusion of other part of head, initial encounter (principal); I10 Essential (primary) hypertension; I25.10 Atherosclerotic heart disease of native coronary artery without angina pectoris; J45.909 Unspecified asthma, uncomplicated; Z79.02 Long term (current) use of antithrombotics/antiplatelets; Z79.899 Other long term (current) drug therapy; W01.10XA Fall on same level from slipping, tripping and stumbling with subsequent striking against unspecified object, initial encounter

== ENCOUNTER 2021-10-04 22:22 | Emergency (ER) | payer MEDICARE, BC ==
[~2021-10-04] VITALS: Ht 154.9 cm; Wt 63.6 kg
[2021-10-04 22:29] VITALS: TEMP 98.6
[2021-10-04 23:28] VITALS: BP 142/67; PULSE 71
== END 2021-10-04 23:28 | disposition home or self-care (01) ==
LOC: COL.ER 22:22
DX: S05.01XA Injury of conjunctiva and corneal abrasion without foreign body, right eye, initial encounter (principal); I25.10 Atherosclerotic heart disease of native coronary artery without angina pectoris; Z86.79 Personal history of other diseases of the circulatory system; Z79.82 Long term (current) use of aspirin; Z79.02 Long term (current) use of antithrombotics/antiplatelets; W55.03XA Scratched by cat, initial encounter

== ENCOUNTER 2022-02-02 16:42 | Emergency (ER) | payer MEDICARE, BC ==
[~2022-02-02] VITALS: Ht 154.9 cm; Wt 63.6 kg
[2022-02-02 16:49] VITALS: TEMP 98
[2022-02-02 18:20] VITALS: BP 161/77; PULSE 60
== END 2022-02-02 18:24 | disposition home or self-care (01) ==
LOC: COL.ER 16:42
DX: S20.211A Contusion of right front wall of thorax, initial encounter (principal); Z88.5 Allergy status to narcotic agent; W19.XXXA Unspecified fall, initial encounter

== ENCOUNTER 2022-02-08 13:12 | Emergency (ER) | payer MEDICARE, BC ==
[~2022-02-08] VITALS: Ht 154.9 cm; Wt 63.6 kg
[2022-02-08 13:40] VITALS: TEMP 97.8
[2022-02-08 14:40] VITALS: BP 131/57; PULSE 62
== END 2022-02-08 14:51 | disposition home or self-care (01) ==
LOC: COL.ER 13:12
DX: I95.9 Hypotension, unspecified (principal)

== ENCOUNTER 2022-03-03 12:29 | Emergency (ER) | payer MEDICARE, BC ==
[~2022-03-03] VITALS: Ht 154.9 cm; Wt 64.1 kg
[2022-03-03 12:52] VITALS: TEMP 97.6
[2022-03-03 13:18] LABS: HEMOGLOBIN 12.1 g/dl (12.5-16.0); MEAN CELL VOLUME 96 fl (80.0-100.0); MEAN CORPUSCULAR HEMOGLOBIN 33 pg (27-31); MEAN CORPUSCULAR HGB CONC 34 g/dl (33.0-37.0); MEAN PLATELET VOLUME 11.8 fl (7.4-10.4); PLATELET COUNT 213 K/mm3 (130-400); RED BLOOD COUNT 3.72 M/mm3 (4.10-5.30); REDCELL DISTRIBUTION WIDTH-CV 12.9 % (11.5-14.5)
[2022-03-03 13:21] LABS: HEMATOCRIT 35.8 % (37.0-47.0)
[2022-03-03 13:34] LABS: ALBUMIN 3.8 gm/dL (3.4-4.8); BILIRUBIN,TOTAL 0.3 mg/dL (0.2-1.2); CALCIUM 9.7 mg/dL (8.4-10.2); CREATININE, serum 1.04 mg/dL (0.57-1.11); POTASSIUM 4.8 mmol/L (3.5-4.5)
[2022-03-03 13:41] LABS: TROPONIN-I 0.016 ng/mL (0.00-0.033)
[2022-03-03 13:51] LABS: BAND 1 % (0-10); EOSINOPHIL 1 % (0-4); HYPOCHROMIA 1+; LYMPHOCYTE 23 % (20.0-51.0); NEUTROPHILS 69 % (42.0-75.2); PLATELET ESTIMATE NORMAL (NORMAL)
[2022-03-03 15:23] LABS: COLLECTION METHOD CLEAN CATCH
[2022-03-03 15:31] LABS: PH 8.5 (5.0-8.5); SQUAMOUS EPITHELIAL None Seen /hpf (0-10); URINE APPEARANCE Clear (CLEAR/HAZY); URINE BACTERIA None Seen /hpf (NONE SEEN); URINE BLOOD Negative (NEGATIVE); URINE COLOR Yellow (YELLOW); URINE GLUCOSE Negative (NEGATIVE); URINE KETONE Negative (NEGATIVE); URINE NITRATE Negative (NEGATIVE); URINE PROTEIN(semi-quant) Negative (NEGATIVE); URINE RBC 0-2 /hpf (0-2); URINE UROBILINOGEN 0.2 E.U/dL (0.2-1.0)
[2022-03-03 17:03] VITALS: BP 154/72; PULSE 78
== END 2022-03-03 17:01 | disposition home or self-care (01) ==
LOC: COL.ER 12:29
PROVIDERS: Nurse Practitioner Family
DX: E87.1 Hypo-osmolality and hyponatremia (principal); E87.5 Hyperkalemia

== ENCOUNTER 2023-04-25 21:29 | Emergency (ER) | payer MEDICARE, BC ==
[~2023-04-25] VITALS: Ht 152.4 cm; Wt 53.6 kg
[~2023-04-25 21:29] MED LIST changes: +AMOXICILLIN 8751 TAB PO
[2023-04-25 21:35] VITALS: TEMP 98.3
[2023-04-25 22:02] LABS: BASO % 0.5 % (0.0-2.0); EOS # 0.4 K/mm3 (0.0-0.7); EOS % 5.2 % (0.0-4.0); GRAN # 4.4 K/mm3 (1.4-6.5); GRAN % 59.1 % (42.2-75.2); LYMPH # 1.4 K/mm3 (1.2-3.4); LYMPH % 18.3 % (20.0-51.0); MEAN CELL VOLUME 94 fl (80.0-100.0); MEAN CORPUSCULAR HEMOGLOBIN 32 pg (27-31); MEAN CORPUSCULAR HGB CONC 34 g/dl (33.0-37.0); MEAN PLATELET VOLUME 12.7 fl (7.4-10.4); MONO # 1.2 K/mm3 (0.1-0.6); MONO % 15.6 % (1.7-9.3); PLATELET COUNT 220 K/mm3 (130-400); RED BLOOD COUNT 3.76 M/mm3 (4.10-5.30); REDCELL DISTRIBUTION WIDTH-CV 12.1 % (11.5-14.5)
[2023-04-25 22:04] LABS: COLLECTION METHOD CLEAN CATCH
[2023-04-25 22:05] LABS: HEMATOCRIT 35.2 % (37.0-47.0)
[2023-04-25 22:16] LABS: INR 1.2 (0.8-3.0); PROTHROMBIN TIME 12.6 SECONDS (9.7-12.8)
[2023-04-25 22:18] LABS: PARTIAL THROMBOPLASTIN TIME 26.8 SECONDS (26.0-37.0)
[2023-04-25 22:21] LABS: ALBUMIN 3.3 gm/dL (3.4-4.8); BILIRUBIN,TOTAL 0.4 mg/dL (0.2-1.2); CALCIUM 9.3 mg/dL (8.4-10.2); CREATININE, serum 1.26 mg/dL (0.57-1.11); POTASSIUM 3.7 mmol/L (3.5-4.5); TOTAL PROTEIN 6.4 gm/dL (6.2-8.1)
[2023-04-25 22:22] LABS: SQUAMOUS EPITHELIAL None Seen /hpf (0-10); URINE APPEARANCE Clear (CLEAR/HAZY); URINE BLOOD Negative (NEGATIVE); URINE COLOR Yellow (YELLOW); URINE GLUCOSE Negative (NEGATIVE); URINE KETONE Negative (NEGATIVE); URINE NITRATE Negative (NEGATIVE); URINE PROTEIN(semi-quant) Negative (NEGATIVE); URINE RBC None Seen /hpf (0-2); URINE UROBILINOGEN 0.2 E.U/dL (0.2-1.0)
[2023-04-25 22:26] LABS: TROPONIN-I 0.023 ng/mL (0.00-0.033)
[2023-04-26 00:05] VITALS: BP 125/60; PULSE 80
== END 2023-04-26 00:09 | disposition home or self-care (01) ==
LOC: COL.ER 21:29
PROVIDERS: Emergency Medicine
DX: E86.0 Dehydration (principal); E87.1 Hypo-osmolality and hyponatremia; E87.8 Other disorders of electrolyte and fluid balance, not elsewhere classified
CPT/HCPCS: J7030

== ENCOUNTER 2023-09-16 15:47 | Emergency (ER) | payer MEDICARE, BC ==
[~2023-09-16] VITALS: Ht 154.9 cm; Wt 57.3 kg
[2023-09-16 15:54] VITALS: TEMP 98.3
[2023-09-16] MEDS ORDERED: ALPRAZolam 0.25 MG TAB PO ONE (16:15)
[2023-09-16] MEDS ORDERED: Cetirizine 10 MG TAB PO ONE (16:30)
[2023-09-16 16:34] LABS: BASO % 0.4 % (0.0-2.0); EOS # 0.2 K/mm3 (0.0-0.7); EOS % 2.5 % (0.0-4.0); GRAN % 69.5 % (42.2-75.2); HEMOGLOBIN 13.5 g/dl (12.5-16.0); LYMPH # 1.1 K/mm3 (1.2-3.4); LYMPH % 15.7 % (20.0-51.0); MEAN CELL VOLUME 97 fl (80.0-100.0); MEAN CORPUSCULAR HEMOGLOBIN 32 pg (27-31); MEAN CORPUSCULAR HGB CONC 33 g/dl (33.0-37.0); MEAN PLATELET VOLUME 12.8 fl (7.4-10.4); MONO # 0.8 K/mm3 (0.1-0.6); MONO % 11.5 % (1.7-9.3); PLATELET COUNT 190 K/mm3 (130-400); RED BLOOD COUNT 4.23 M/mm3 (4.10-5.30); REDCELL DISTRIBUTION WIDTH-CV 12.1 % (11.5-14.5)
[2023-09-16 16:45] LABS: INR 1.1 (0.8-3.0); PROTHROMBIN TIME 12.2 SECONDS (9.7-12.8)
[2023-09-16 16:48] LABS: PARTIAL THROMBOPLASTIN TIME 31.8 SECONDS (26.0-37.0)
[2023-09-16 16:55] LABS: ALANINE AMINOTRANSFERASE 16 U/L (0-55); ALBUMIN 3.7 gm/dL (3.4-4.8); ALKALINE PHOSPHATASE 104 U/L (40-150); ANION GAP 11 mmol/L (7-16); AST,SGOT 19 U/L (5-34); BLOOD UREA NITROGEN 24 mg/dL (10-20); CALCIUM 9.8 mg/dL (8.4-10.2); CARBON DIOXIDE 21 mmol/L (23-31); CHLORIDE 107 mmol/L (98-107); GLUCOSE 138 mg/dL (70-99); MAGNESIUM 2.1 mg/dL (1.6-2.6); POTASSIUM 4.5 mmol/L (3.5-4.5); SODIUM 139 mmol/L (136-145); TOTAL PROTEIN 6.7 gm/dL (6.2-8.1)
[2023-09-16 17:05] LABS: TROPONIN-I < 0.010 ng/mL (0.00-0.033)
[2023-09-16 17:15] LABS: BILIRUBIN,TOTAL 0.5 mg/dL (0.2-1.2)
[2023-09-16] MEDS ORDERED: XANAX .25M0.25 MG/TA PO (17:28)
[2023-09-16 17:35] VITALS: BP 153/69; PULSE 78
== END 2023-09-16 17:36 | disposition home or self-care (01) ==
LOC: COL.ER 15:47
PROVIDERS: Internal Medicine
DX: F41.0 Panic disorder [episodic paroxysmal anxiety] (principal); F41.1 Generalized anxiety disorder; F32.9 Major depressive disorder, single episode, unspecified; I12.9 Hypertensive chronic kidney disease with stage 1 through stage 4 chronic kidney disease, or unspecified chronic kidney disease; N18.31 Chronic kidney disease, stage 3a; H74.03 Tympanosclerosis, bilateral; Z90.5 Acquired absence of kidney; Z96.0 Presence of urogenital implants; Z79.82 Long term (current) use of aspirin; Z79.02 Long term (current) use of antithrombotics/antiplatelets

== ENCOUNTER 2024-02-23 19:43 | Emergency (ER) | payer MEDICARE, BC ==
[~2024-02-23] VITALS: Ht 154.9 cm; Wt 59.1 kg
[~2024-02-23 19:43] MED LIST changes: +XANAX .25M0.25 MG/TA PO
[2024-02-23 19:53] VITALS: TEMP 98.4
[2024-02-23 20:31] LABS: BASO % 0.3 % (0.0-2.0); EOS # 0.3 K/mm3 (0.0-0.7); EOS % 4.8 % (0.0-4.0); GRAN # 4.9 K/mm3 (1.4-6.5); GRAN % 71.2 % (42.2-75.2); HEMATOCRIT 38.1 % (37.0-47.0); HEMOGLOBIN 12.8 g/dl (12.5-16.0); LYMPH # 0.9 K/mm3 (1.2-3.4); LYMPH % 12.8 % (20.0-51.0); MEAN CELL VOLUME 94 fl (80.0-100.0); MEAN CORPUSCULAR HEMOGLOBIN 32 pg (27-31); MEAN CORPUSCULAR HGB CONC 34 g/dl (33.0-37.0); MONO # 0.7 K/mm3 (0.1-0.6); MONO % 10.3 % (1.7-9.3); PLATELET COUNT 167 K/mm3 (130-400); RED BLOOD COUNT 4.05 M/mm3 (4.10-5.30)
[2024-02-23 20:50] LABS: ALBUMIN 3.7 g/dL (3.4-4.8); BILIRUBIN,TOTAL 0.4 mg/dL (0.2-1.2); CALCIUM 9.7 mg/dL (8.4-10.2); CREATININE, serum 1.15 mg/dL (0.57-1.11); POTASSIUM 4.3 mEq/L (3.5-4.5); TOTAL PROTEIN 7.2 g/dl (6.2-8.1)
[2024-02-23 20:59] LABS: COLLECTION METHOD CLEAN CATCH
[2024-02-23] MEDS ORDERED: Cyclobenzaprine 10 MG TAB PO ONE (21:00)
[2024-02-23] MEDS ORDERED: Acetaminophen 500 MG TAB PO ONE (21:00)
[2024-02-23 21:08] LABS: URINE APPEARANCE CLOUDY (CLEAR/HAZY); URINE BLOOD TRACE (NEGATIVE); URINE COLOR YELLOW (YELLOW); URINE GLUCOSE NEGATIVE (NEGATIVE); URINE KETONE NEGATIVE (NEGATIVE); URINE NITRATE NEGATIVE (NEGATIVE); URINE PROTEIN(semi-quant) 1+ (NEGATIVE); URINE UROBILINOGEN 0.2 E.U/dL (0.2-1.0)
[2024-02-23] MEDS ORDERED: cefTRIAXone 1 G in Water For Injection,Sterile 10 ML IV ONE (21:15)
[2024-02-23 21:56] VITALS: BP 173/69; PULSE 80
[2024-02-23] MEDS ORDERED: CEFTIN500 MG PO (22:11)
== END 2024-02-23 21:56 | disposition home or self-care (01) ==
LOC: COL.ER 19:43
PROVIDERS: Nurse Practitioner Primary Care
DX: N39.0 Urinary tract infection, site not specified (principal)
CPT/HCPCS: J0696

== ENCOUNTER 2024-02-29 10:20 | Emergency (ER) | payer MEDICARE, BC ==
[~2024-02-29] VITALS: Ht 154.9 cm; Wt 59.1 kg
[~2024-02-29 10:20] MED LIST changes: +CEFTIN500 MG PO
[2024-02-29] MEDS ORDERED: Morphine 10 MG/ML VIAL IM ONE (10:45)
[2024-02-29] MEDS ORDERED: PERCOCET 325 MG1 TA2 PO (12:37)
[2024-02-29 13:30] VITALS: BP 132/78; PULSE 69; TEMP 97.9
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
== END 2024-02-29 13:30 | disposition home or self-care (01) ==
LOC: COL.ER 10:20
DX: S32.030A Wedge compression fracture of third lumbar vertebra, initial encounter for closed fracture (principal); S32.040A Wedge compression fracture of fourth lumbar vertebra, initial encounter for closed fracture; X58.XXXA Exposure to other specified factors, initial encounter
CPT/HCPCS: J2270

== ENCOUNTER 2024-03-03 10:08 | Emergency (ER) | payer MEDICARE, BC ==
[~2024-03-03] VITALS: Ht 154.9 cm; Wt 46.8 kg
[2024-03-03 10:09] VITALS: TEMP 96.6
[2024-03-03 10:33] LABS: BASO % 0.5 % (0.0-2.0); EOS # 0.3 K/mm3 (0.0-0.7); EOS % 4.1 % (0.0-4.0); GRAN # 3.4 K/mm3 (1.4-6.5); GRAN % 54.8 % (42.2-75.2); HEMATOCRIT 39.9 % (37.0-47.0); HEMOGLOBIN 13.4 g/dl (12.5-16.0); LYMPH # 1.7 K/mm3 (1.2-3.4); LYMPH % 27.4 % (20.0-51.0); MEAN CELL VOLUME 95 fl (80.0-100.0); MEAN CORPUSCULAR HEMOGLOBIN 32 pg (27-31); MEAN CORPUSCULAR HGB CONC 34 g/dl (33.0-37.0); MEAN PLATELET VOLUME 11.9 fl (7.4-10.4); MONO # 0.8 K/mm3 (0.1-0.6); MONO % 12.2 % (1.7-9.3); PLATELET COUNT 206 K/mm3 (130-400); REDCELL DISTRIBUTION WIDTH-CV 12.1 % (11.5-14.5)
[2024-03-03] MEDS ORDERED: Morphine 4 MG/ML VIAL IV ONE (10:45)
[2024-03-03] MEDS ORDERED: NS 1,000 ML IV ONE (10:45)
[2024-03-03] MEDS ORDERED: LAMICTAL 25MG T25 MG PO (10:54)
[2024-03-03] MEDS ORDERED: ARICEPT 5MG PO (10:54)
[2024-03-03] MEDS ORDERED: PRAVACHOL10 MG PO (10:55)
[2024-03-03 11:04] LABS: BILIRUBIN,TOTAL 0.4 mg/dL (0.2-1.2); CALCIUM 9.8 mg/dL (8.4-10.2); CREATININE, serum 1.61 mg/dL (0.57-1.11); POTASSIUM 4.7 mEq/L (3.5-4.5); TOTAL PROTEIN 7.7 g/dl (6.2-8.1)
[2024-03-03 11:10] LABS: TROPONIN-I 0.025 ng/mL (0.00-0.033)
[2024-03-03 11:41] LABS: COLLECTION METHOD CATHETER
[2024-03-03 11:51] LABS: PH 5.5 (5.0-8.5); URINE APPEARANCE CLEAR (CLEAR/HAZY); URINE BLOOD NEGATIVE (NEGATIVE); URINE COLOR YELLOW (YELLOW); URINE GLUCOSE NEGATIVE (NEGATIVE); URINE KETONE NEGATIVE (NEGATIVE); URINE NITRATE NEGATIVE (NEGATIVE); URINE PROTEIN(semi-quant) 1+ (NEGATIVE); URINE UROBILINOGEN 0.2 E.U/dL (0.2-1.0)
[2024-03-03] MEDS ORDERED: Sodium Chloride 3% 500 ML IV SCH (12:00)
[2024-03-03 12:30] VITALS: BP 165/58; PULSE 81
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
== END 2024-03-03 12:47 | disposition home or self-care (01) ==
LOC: COL.ER 10:08
PROVIDERS: Physician Assistant
DX: M54.50 Low back pain, unspecified (principal); R06.02 Shortness of breath
CPT/HCPCS: J2270; J7030

== ENCOUNTER 2024-03-24 12:08 | Emergency (ER) | payer MEDICARE, BC ==
[~2024-03-24] VITALS: Ht 152.4 cm; Wt 57.3 kg
[~2024-03-24 12:08] MED LIST changes: +ARICEPT 5MG PO; +FENTANYL 25 MCG TD; +LAMICTAL 25MG T25 MG PO; +PRAVACHOL10 MG PO
[2024-03-24 12:09] VITALS: TEMP 97.7
[2024-03-24] MEDS ORDERED: fentaNYL 50 MCG/ML 2 ML VIAL IV ONE (12:45)
[2024-03-24 13:20] LABS: BASO % 0.3 % (0.0-2.0); EOS # 0.2 K/mm3 (0.0-0.7); EOS % 3.1 % (0.0-4.0); GRAN # 5.5 K/mm3 (1.4-6.5); HEMATOCRIT 38.2 % (37.0-47.0); HEMOGLOBIN 12.8 g/dl (12.5-16.0); LYMPH # 0.9 K/mm3 (1.2-3.4); MEAN CELL VOLUME 97 fl (80.0-100.0); MEAN CORPUSCULAR HEMOGLOBIN 33 pg (27-31); MEAN CORPUSCULAR HGB CONC 34 g/dl (33.0-37.0); MEAN PLATELET VOLUME 12.9 fl (7.4-10.4); MONO # 0.8 K/mm3 (0.1-0.6); MONO % 11.2 % (1.7-9.3); PLATELET COUNT 176 K/mm3 (130-400); RED BLOOD COUNT 3.94 M/mm3 (4.10-5.30); REDCELL DISTRIBUTION WIDTH-CV 12.5 % (11.5-14.5)
[2024-03-24 13:42] LABS: ALBUMIN 3.9 g/dL (3.4-4.8); BILIRUBIN,TOTAL 0.5 mg/dL (0.2-1.2); CALCIUM 10.2 mg/dL (8.4-10.2); CREATININE, serum 1.04 mg/dL (0.57-1.11); POTASSIUM 3.5 mEq/L (3.5-4.5); TOTAL PROTEIN 7.5 g/dl (6.2-8.1)
--- NOTE | 2024-03-24 14:44 | NUR ---
SW consulted due to patient being in ED for the 5th time in past 1 month for pain. Patient seen in this hospital ED on 02/22, 02/28, 03/03, 03/21 and today for complaint of back pain. Patient seen by this SW on 03/21 and had long discussion about appropriate use of ED vs chronic issues that should be treated by PCP. SW called patient's son on 03/21 and left message for return call. SW called EMS today to inquire about patient status upon their arrival to her home and spoke with the EMT that transported patient to ED. He stated that patient was sitting in her living room stating that she hadn't taken her medication today because she hadn't eaten. He also reported that the house was dirty from patient's cats and dirty dishes but patient had food in the refrigerator. CATHERINE then called patient's son Matthew and had long discussion related to patient's multiple trips to ED for pain control and concern of her living at home alone. Matthew shared that he talks to patient at least once daily and has been to her home one or twice a month to help "clean out her garage and storage shed" to help her get rid of her clutter in her home. Matthew voiced no concerns of patient living at home alone and states that she "does ok". CATHERINE met with RN and provider in ED. SW entered patient's room and patient stated she needed to use the bathroom. SW asked that patient be gotten up and walk to the bathroom. Aid walked with patient to the bathroom, patient using her quad cane and walked independently. CATHERINE and CM Director Mesha spoke with ED provider regarding patient's ability and suspect of drug seeking. Director Zimmer spoke with Judy at Dr. Cruz's office to report patient's physical ability and no need for PT/OT evaluation. Judy to follow up and schedule patient for follow up in Dr. Cruz's office. CATHERINE met with patient in room. Patient sitting on side of bed after returning from bathroom. Patient stating "I'm hurting". SW commented on patient's ability to walk to and from bathroom independently without indication of pain. Patient stated "you don't know how I feel." Patient sitting on side of bed, leaning back with left leg foot lifted up on bed without an indication of pain. Patient informed by this SW that she will be discharged to home and Dr. Cruz's office will follow up with her. Patient stated "they haven't given my anything in this yet", indicating her IV in right arm. SW informed that the doctor will see her shortly. ED provider informed of visit and patient's behavior. Provider informed that patient is safe for discharge to home and usually sets up an Uber for herself.
[2024-03-24 15:26] VITALS: BP 198/86; PULSE 83
== END 2024-03-24 15:25 | disposition home or self-care (01) ==
LOC: COL.ER 12:08
PROVIDERS: Family Medicine
DX: G89.29 Other chronic pain (principal); I25.10 Atherosclerotic heart disease of native coronary artery without angina pectoris; Z95.5 Presence of coronary angioplasty implant and graft; Z79.82 Long term (current) use of aspirin
CPT/HCPCS: J3010

== ENCOUNTER 2024-04-02 15:45 | Observation (INO) | payer MEDICARE, BC ==
[~2024-04-02] VITALS: Ht 152.4 cm; Wt 55.0 kg
[2024-04-02] MEDS ORDERED: Morphine 4 MG/ML VIAL IV ONE (16:00)
[2024-04-02 16:15] LABS: BASO % 0.4 % (0.0-2.0); EOS # 0.1 K/mm3 (0.0-0.7); EOS % 1.7 % (0.0-4.0); GRAN # 6.2 K/mm3 (1.4-6.5); GRAN % 72.7 % (42.2-75.2); HEMATOCRIT 39.4 % (37.0-47.0); HEMOGLOBIN 13.2 g/dl (12.5-16.0); LYMPH # 1.4 K/mm3 (1.2-3.4); LYMPH % 16.2 % (20.0-51.0); MEAN CELL VOLUME 98 fl (80.0-100.0); MEAN CORPUSCULAR HEMOGLOBIN 33 pg (27-31); MEAN CORPUSCULAR HGB CONC 34 g/dl (33.0-37.0); MEAN PLATELET VOLUME 13.2 fl (7.4-10.4); MONO # 0.7 K/mm3 (0.1-0.6); MONO % 8.5 % (1.7-9.3); PLATELET COUNT 174 K/mm3 (130-400); RED BLOOD COUNT 4.03 M/mm3 (4.10-5.30); REDCELL DISTRIBUTION WIDTH-CV 12.8 % (11.5-14.5)
[2024-04-02 16:21] LABS: COLLECTION METHOD CATHETER
[2024-04-02 16:30] LABS: URINE APPEARANCE CLEAR (CLEAR/HAZY); URINE BLOOD NEGATIVE (NEGATIVE); URINE COLOR YELLOW (YELLOW); URINE GLUCOSE NEGATIVE (NEGATIVE); URINE KETONE TRACE (NEGATIVE); URINE NITRATE NEGATIVE (NEGATIVE); URINE PROTEIN(semi-quant) 2+ (NEGATIVE)
[2024-04-02 16:32] LABS: BILIRUBIN,TOTAL 0.6 mg/dL (0.2-1.2); CALCIUM 10.5 mg/dL (8.4-10.2); CREATININE, serum 1.06 mg/dL (0.57-1.11); MAGNESIUM 2.4 mg/dL (1.6-2.6); POTASSIUM 4.1 mEq/L (3.5-4.5); TOTAL PROTEIN 7.6 g/dl (6.2-8.1)
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
[2024-04-02 17:03] LABS: TROPONIN-I 0.071 ng/mL (0.00-0.033)
[2024-04-02] MEDS ORDERED: Naloxone 0.4 MG/ML VIAL IV PRN (18:45)
[2024-04-02] MEDS ORDERED: Mag/Al Hydrox/Simeth Susp 30 ML CUP PO PRN (18:45)
[2024-04-02] MEDS ORDERED: Magnes Hydrox (MOM) 80 MG/ML 30 ML CUP PO PRN (18:45)
[2024-04-02] MEDS ORDERED: Morphine 4 MG/ML VIAL IV PRN (18:45)
[2024-04-02] MEDS ORDERED: NS 1,000 ML IV SCH (18:45)
[2024-04-02 18:59] LABS: PARTIAL THROMBOPLASTIN TIME 32.2 SECONDS (26.0-37.0)
[2024-04-02 19:00] LABS: INR 1.1 (0.8-3.0); PROTHROMBIN TIME 12.2 SECONDS (9.7-12.8)
[2024-04-02] MEDS ORDERED: Iohexol 350 - 100 ML VIAL IV ONE (19:18)
[2024-04-02] MEDS ORDERED: NS 100 ML IV ONE (19:19)
[2024-04-02] MEDS ORDERED: Acetaminophen 500 MG TAB PO SCH (19:37)
[2024-04-02] MEDS ORDERED: PERCOCET 325 MG1 TAB PO (19:44)
[2024-04-02] MEDS ORDERED: ADALAT CC30 MG PO (19:45)
[2024-04-02] MEDS ORDERED: oxyCODONE/Acetaminophen 10-325 MG TAB PO PRN (19:45)
[2024-04-02] MEDS ORDERED: ATACAND8 MG PO (19:48)
[2024-04-02] MEDS ORDERED: K-TAB20 PO (19:48)
[2024-04-02] MEDS ORDERED: NATURAL IRON65 MG PO (19:53)
[2024-04-02] MEDS ORDERED: MULTIPLE VITAMI1 CAP PO (19:53)
[2024-04-02 21:00] VITALS: BP 178/78
[2024-04-02] MEDS ORDERED: Isosorbide Mononitrate CR (24-HR) 60 MG TAB PO SCH (21:00)
[2024-04-02] MEDS ORDERED: Famotidine 20 MG TAB PO SCH (21:00)
[2024-04-02] MEDS ORDERED: Docusate Sodium 100 MG CAP PO SCH (21:00)
[2024-04-02] MEDS ORDERED: Donepezil 5 MG TAB PO SCH (21:00)
[2024-04-02] MEDS ORDERED: lamoTRIgine 25 MG TAB PO SCH (21:00)
[2024-04-02] MEDS ORDERED: Pravastatin 20 MG TAB PO SCH (21:00)
[2024-04-02] MEDS ORDERED: Melatonin 3 MG TAB PO PRN (21:00)
[2024-04-02] MEDS ORDERED: Ferrous Sulfate 325 MG TAB PO SCH (21:00)
[2024-04-02] MEDS ORDERED: Carvedilol 6.25 MG TAB PO SCH (21:00)
[2024-04-02] MEDS ORDERED: NIFEdipine XL 30 MG TAB PO SCH (21:00)
[2024-04-02 21:35] VITALS: BP 17/78; BP_SYST 178; PULSE 91; TEMP 97.5
--- NOTE | 2024-04-02 21:38 | NUR ---
PATIENT ADMITTED TO ROOM 311 BROUGHT UP IN BED BY ER PCT.VS ARE: BP 178/78, 91 PULSE , 97% ON RA, TEMP 97.5 ORAL. PATIENT IS A&O X 4 BUT SLOW TO RESPOND TO QUESTIONS. HAIR APPEARS UNKEMPT.ASSISTED PATIENT TO RESTROOM, GAIT WAS WEAK AND PATIENT IMPROPERLY USED QUAD CANE. PLACED PATIENT ON HIGH FALL RISK AND APPLIED PUREWICK. BP AND HEART MEDS RECENTLY ADMINSTERED BY ER-RN, NO INTERVENTIONS FOR 178 SYTOLIC BP GIVEN AT THIS TIME- WILL ALLOW MEDS TO TAKE EFFECT AND CONTINUE BP VIGILANCE.
--- NOTE | 2024-04-02 22:41 | NUR ---
PATIENT BROUGHT BOTTLE OF OXYCODONE FROM HOME 10-325MG. 155 TABS COUNTED BY THIS NURSE AND CHARGE NURSE BHARGAVI SALMERON.PATIENT STICKER PLACED AND SENT TO PHARMACY BY HOUSE. CRITICAL TROPONIN CALLED TO KASSANDRA DE SANTIAGO-0.070.
[2024-04-02 22:45] VITALS: BP_SYST 156
[2024-04-02 22:47] VITALS: BP 178/78
[2024-04-02 23:24] VITALS: BP 156/72; PULSE 78; TEMP 97.9
[2024-04-03] VITALS (14 sets, daily range): BP systolic 110–196; BP diastolic 44–89; PULSE 71–76; TEMP 97.4–98.1
--- NOTE | 2024-04-03 02:37 | NUR ---
PATIENT WOULD BENEFIT FROM PT OAND OT SHE HAS A WEAK GAIT AND ISSUES WITH MOBILITY AND BODY POSITIONING. SHE CANNOT CONFIDENTLY AMBULATE NOR GET INTO BED. NEGOTIATING SPACE AND PAIN ALONG WITH BODY MECHANICS IS PROBLEMATIC.
[2024-04-03 06:21] LABS: BASO % 0.4 % (0.0-2.0); EOS # 0.2 K/mm3 (0.0-0.7); EOS % 2.8 % (0.0-4.0); GRAN # 3.3 K/mm3 (1.4-6.5); GRAN % 57.4 % (42.2-75.2); HEMOGLOBIN 11.5 g/dl (12.5-16.0); LYMPH # 1.5 K/mm3 (1.2-3.4); LYMPH % 26.4 % (20.0-51.0); MEAN CELL VOLUME 97 fl (80.0-100.0); MEAN CORPUSCULAR HEMOGLOBIN 33 pg (27-31); MEAN CORPUSCULAR HGB CONC 34 g/dl (33.0-37.0); MEAN PLATELET VOLUME 12.9 fl (7.4-10.4); MONO # 0.7 K/mm3 (0.1-0.6); MONO % 12.3 % (1.7-9.3); PLATELET COUNT 172 K/mm3 (130-400); RED BLOOD COUNT 3.48 M/mm3 (4.10-5.30); REDCELL DISTRIBUTION WIDTH-CV 12.8 % (11.5-14.5)
[2024-04-03 06:22] LABS: HEMATOCRIT 33.9 % (37.0-47.0)
[2024-04-03 06:57] LABS: ALBUMIN 3.2 g/dL (3.4-4.8); BILIRUBIN,TOTAL 0.5 mg/dL (0.2-1.2); CALCIUM 9.6 mg/dL (8.4-10.2); CHOLESTEROL RISK RATIO 2.3; CREATININE, serum 0.93 mg/dL (0.57-1.11); POTASSIUM 4.1 mEq/L (3.5-4.5); TOTAL PROTEIN 6.1 g/dl (6.2-8.1)
--- NOTE | 2024-04-03 07:47 | NUR ---
CALL RECIEVED FROM LAB THAT PATIENT BLOOD GLUCOSE IS 61, THIS RN CHECKED PATIENT BLOOD SUGAR AND IT IS CURRENTLY 60. ANDREY IS SLEPEING BUT AROUSES EASILY TO NAME. KARLY BEY MD INFORMED AND HYPOGLYCEMIA PROTOCOL INITIATED.
[2024-04-03] MEDS ORDERED: Dextrose 50% Water 25 GM/50 ML SYRINGE IV PRN (08:00)
[2024-04-03] MEDS ORDERED: Dextrose (Glucose) 15 GM (4 x 3.75 GM) Chewable TABLET PACK PO PRN (08:00)
[2024-04-03] MEDS ORDERED: Glucagon 1 MG VIAL IM PRN (08:00)
--- NOTE | 2024-04-03 08:00 | NUR ---
ANDREY COOPERATIVE,RESTING IN BED. SHE DENIES ANY NEEDS OR COMPLAINTS AT THIS TIME. CALL LIGHT WITHIN REACH. FALL PRECAUTIOSN IN PLACE.
[2024-04-03] MEDS ORDERED: Lidocaine 4% Topical Patch TP SCH (09:00)
[2024-04-03] MEDS ORDERED: Influenza Virus Vaccine, Hi-Dose Triv '24-25 (65 YR+) 0.5 ML SYRINGE IM SCH (09:00)
[2024-04-03] MEDS ORDERED: Multivitamin TAB PO SCH (09:00)
[2024-04-03] MEDS ORDERED: [UNRECOGNIZED DRUG - REMARK] PO SCH (09:00)
[2024-04-03] MEDS ORDERED: buPROPion XL (24-HR) 150 MG TAB PO SCH (09:00)
[2024-04-03] MEDS ORDERED: Clopidogrel 75 MG TAB PO SCH (09:00)
[2024-04-03] MEDS ORDERED: Losartan 50 MG TAB PO SCH (09:00)
--- NOTE | 2024-04-03 09:24 | NUR ---
PT A&OX4. PT ASSISTED TO BATHROOM WITH 2X STAFF ASSIST. PT SITTING ON SIDE OF BED. PAIN LEVEL 6 WHEN SITTING STILL. NS RUNNING 60ML/HR. IV IN RAC PATENT WITH NO S/S OF REDNESS OR TENDERNESS. PT CALL LIGHT WITHIN REACH AND BED ALARM ON. NO OTHER CONCERNS AT THIS TIME.
--- NOTE | 2024-04-03 12:25 | NUR ---
D: Tractor Trailer Driver stopped by room on rounds. A: Pt was resting and content sitting in her chair. Pt asked for prayer, negative turner prayed with her and offered comfort. Pt has no other needs. P: Tractor Trailer Driver informed pt that if she needed anything from the negative turner area to let her nurse know. Tractor Trailer Driver will follow up as needed.
--- NOTE | 2024-04-03 13:41 | NUR ---
PT SITTING IN CHAIR WITH CHAIR ALARM IN PLACE AND PLUGGED IN. IV RUNNING @ 60 ML/HR IN LAC. NO FAMILY OR FRIENDS PRESENT. CALL LIGHT AND PERSONAL BELONGINGS WITHIN REACH. NO CONCERNS AT THIS TIME. REPORTED OFF TO CHARGE NURSE.
--- NOTE | 2024-04-03 13:46 | NUR ---
fruit ii farmworker is familiar with pt due to many ER admissions and pt previously declined Home Health services. CATHERINE met with pt who reports to be living alone in [place]. She sees Dr. Cruz for PCP needs and obtains medications from [facility] with no difficulties. She verifed her insurance as Medicare A/B and BCBS. She states she is typically independent with ADLS, but does not shower due to fear of falling. She uses a quad cane and a walker for DME, but she reports issues with the FWW. She does not have a DPOA-HC and reports she has spoken with her daughter, Mignon [phone] who lives in [place] about moving there. Matthew son [phone] has been called many times prior to this stay. SW provided Medicare.gov list of HH agenices and provided private pay caregiver list. CATHERINE verbalized all information to pt and advised she chose one as this would be to her benefit and for her safety. She did not disagree and CATHERINE states she will follow up. CATHERINE called pt's daughter, Mignon [phone] and provided update and that pt mentioned moving with her. Mignon put the phone on speaker so her , Vishal could hear as well. CATHERINE provided pt needs SNF level of care, but she is observation and this would be private pay. Mignon reports they cannot private pay for SNF at this time. CATHERINE discussed HH with the addition of caregivers. Daughter reports she will talk with her family to see if they could find solutions and could pay for caregivers. Daughter sounded slightly surprised by the concerns SW stated and how pt needs further support then living alone. Mignon reports they are looking for a house in [place] and only staying in a small rented room. CATHERINE discussed family staying with pt in [place] for some time and daughter states jane Castro is not an option as he travels in/out of [place] often. CATHERINE discussed pt's need for a bedside commode and a FWW (covered by ins.) Daughter reports that pt has no room in her home for either of these items. Pt intended to put up a step stool to use her thermostat at home Mignon states. CATHERINE informed them that pt will likely be discharged within the next 24-48hrs from admission. Mignon was informed to call CATHERINE back as soon as she knew something. CATHERINE called Manohar at [facility] who does not have pt on their HH list. Discharge Plan: Home with HH and private duty-- tbd
--- NOTE | 2024-04-03 15:29 | NUR ---
calender worker helper received a voicemail from daughterMignon requesting to see if pt is eligible for Medicaid. CATHERINE spoke with financial counselor, Yudy who will meet with pt and see if she qualifies. CATHERINE informed daughter of this and that is not a quick process unfortunately, but would open up more services throught the [facility] on [address]. Daughter states her aunt is unable to assist and pt's son is in [place]. She was willing to private pay for 1-2 hours a day of caregiving services. CATHERINE obtained the lowest cost amount- $18/hour and provided this to daughter. CATHERINE spoke with Chichi Esparza who will reach out to daughter to discuss. Mignon states she has not yet had a chance to talk with patient. Mignon states she gave SW number to Matthew to obtain update. CATHERINE called sonMatthew and left a voicemail regarding pt's discharge planning purposes. CATHERINE provided final update to VÍCTOR Hernández regarding discharge plans. Discharge Plan: home with and private duty
[2024-04-03] MEDS ORDERED: hydrALAZINE 20 MG/ML 1 ML VIAL IV PRN (16:15)
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
--- NOTE | 2024-04-03 19:37 | NUR ---
RECEIVED CHANGE OF SHIFT REPORT FROM DAY SHIFT NURSE. PATIENT RESTING IN BED WITH EYES CLOSED. DID NOT WAKE DURING NURSE ROUNDING FOR REPORT.
[2024-04-04] VITALS (8 sets, daily range): BP systolic 130–166; BP diastolic 61–84; PULSE 69–78; TEMP 97.5–98.1
--- NOTE | 2024-04-04 02:00 | NUR ---
PATIENT INITIALLY REQUESTED TO HAVE IV TO LAC TAKEN OUT AND IV SITE RESTART TO ANOTHER PLACE ON HER BUE, THEN PATIENT REPORTED THAT SHE CHANGED HER MIND AND DID NOT WANT TO TAKE LAC IV SITE OUT. DENIES ANY OTHER NEEDS OR CONCERNS AT THIS TIME.
--- NOTE | 2024-04-04 07:32 | NUR ---
PT RESTING WITH EYES CLOSED IN BED WITH EQUAL AND NONLABORED RESPIRATIONS. NO FAMILY/FRIENDS AT BED SIDE. PT HAS IV TO LAC WITH NS RUNNING AT 60ML/HR. ALL FALL INTERVENTIONS IN PLACE. PERSONAL ITEMS AND CALL LIGHT WITHIN REACH. NO CONCERNS AT THIS TIME.
--- NOTE | 2024-04-04 07:34 | NUR ---
REPORT GIVEN TO DAY SHIFT NURSEMELANY. PATIENT RESTING IN BED WITH EYES CLOSED, DID NOT WAKE DURING REPORT.
[2024-04-04 07:36] LABS: BASO % 0.3 % (0.0-2.0); EOS # 0.2 K/mm3 (0.0-0.7); GRAN # 3.8 K/mm3 (1.4-6.5); GRAN % 61.5 % (42.2-75.2); HEMOGLOBIN 11.1 g/dl (12.5-16.0); LYMPH # 1.4 K/mm3 (1.2-3.4); LYMPH % 22.7 % (20.0-51.0); MEAN CELL VOLUME 95 fl (80.0-100.0); MEAN CORPUSCULAR HEMOGLOBIN 33 pg (27-31); MEAN CORPUSCULAR HGB CONC 34 g/dl (33.0-37.0); MEAN PLATELET VOLUME 12.9 fl (7.4-10.4); MONO # 0.7 K/mm3 (0.1-0.6); MONO % 11.8 % (1.7-9.3); PLATELET COUNT 158 K/mm3 (130-400); REDCELL DISTRIBUTION WIDTH-CV 12.8 % (11.5-14.5)
[2024-04-04 07:49] LABS: HEMATOCRIT 32.4 % (37.0-47.0)
[2024-04-04 08:41] LABS: CALCIUM 9.2 mg/dL (8.4-10.2); CREATININE, serum 0.82 mg/dL (0.57-1.11); POTASSIUM 3.3 mEq/L (3.5-4.5)
[2024-04-04] MEDS ORDERED: Potassium Bicarbonate/Citrate 20 MEQ Effervescent TAB PO SCH (09:00)
[2024-04-04] MEDS ORDERED: *Potassium Replacement Protocol MC SCH (09:00)
--- NOTE | 2024-04-04 09:01 | NUR ---
calender worker helper met with patient to discuss choice of home health. Patient chose [facility] . SW discussed if patient wants a walker ordered as well. Patient is worried about the cost. SW expressed she could send it to the home medical store and they would run her insurance and if it would cost anything they would discuss this with her. Patient agreeable to send the walker order to [facility]. SW discussed private pay care giving as well and notified her to discuss this with her family as she may need more support at home. Patient understood. SW secure emailed referral to [facility] . CATHERINE secure emailed walker order and supporting documents to [facility]. SW placed walker order on patient's chart. Discharge plan: Home with Home Health
--- NOTE | 2024-04-04 09:30 | NUR ---
PATIENT RESTING IN BED UPON ENTERING ROOM. MORNING MEDICATIONS ADMINISTERED BY STUDENT RN, ALBINA. PATIENT COMPLAINS OF 10/10 PAIN TO HER BACK, PRN AND SCHEDULED MEDICATIONS GIVEN PER eMAR. PATIENT UPDATED ON PLAN OF CARE. AMBULATES AROUND ROOM WITH WITH MINIMAL ASSISTANCE WITH WALKER. DENIES ANY NEEDS AT THIS TIME. CALL LIGHT WITHIN REACH, BED AND CHAIR ALARMS IN PLACE. WILL CONTINUE TO MONITOR.
[2024-04-04] MEDS ORDERED: ASPIRIN E.C. 8181 MG PO (09:52)
[2024-04-04] MEDS ORDERED: BLUE-EMU LIDOC1 EACH TP (09:53)
--- NOTE | 2024-04-04 13:23 | NUR ---
maintenance and repair worker confirmed with [facility] they can accept pt. CATHERINE informed pt is cleared to discharge during rounding. CATHERINE faxed discharge orders to [facility] and informed them of this and they will be out the next day. CATHERINE spoke with pt's daughter, Mignon and son, Matthew many times who are agreeable to pt discharging home with and private duty. Matthew reports in the next two weeks or so, he intends to move pt in with him. Mignon reports [facility] private duty could not come out on short notice and the rep, Chichi was reportedley not in today. CATHERINE met with pt to discuss the plan for discharge. She expressed concerns with going home via UBER and that she needs assistance getting inside and is worried about this. SW advised she will try to arrange someone to meet her whether it is private duty or EMS. Pt confirms she has no local family or friends. CATHERINE spoke with student financial aid manager, Yudy who reports pt declined to complete the Medicaid application. SW urged pt to complete this as it is to her benefit. pt was agreeable and SW informed Yudy. [facility] and she is not able to see pt today. CATHERINE spoke with Roberta at [facility] who reports it takes time to set up services. CATHERINE spoke with Chichi at [address] [place] [address] who cannot see pt today either. CATHERINE spoke with [facility] who can attempt to meet pt at the home if able. CATHERINE provided update to pt's children. Son, Matthew reports he will speak with pt's ex-, Marco (Matthew's Dad) who is in [place] to assist pt. This was later confirmed and Marco would peanut picker pt at 1pm. CATHERINE again met with pt to check in and go over the plan with Yudy present. She went on to express concerns about managing at home and having to wait a day or so for /Private Duty to arrive was concerning. CATHERINE provided that she could private pay for SNF. Pt then reports she cannot afford this. She wanted to get up and "try to walk." SW urged her to use her call light as she needs assistance per the whiteboard. CATHERINE informed SORAYA Riley of pt's concerns and updated her on the discharge plan; following completion with Yudy. RN Hope was agreeable to pt's discharge by ex- picking her up at 1pm. SW informed Supervisor Wound, Kaila of the concerns pt had and SW discussion intent to discharge. Discharge Plan: home with HH and private duty
--- NOTE | 2024-04-04 13:42 | NUR ---
muffle worker was notified by Yudy that patient financially qualifies for Medicaid but if patient puts her home on the market, she would no longer qualify and if she was in a prison she would have to private pay. Yudy expressed patient decided she did not want to apply for Medicaid. SW notified Radha, main medical education specialist. Discharge plan: Home with [facility] along with private pay caregivers
--- NOTE | 2024-04-04 13:52 | NUR ---
PT DISCHARGED IN W/C. ALERT AND ORIENTED. ALL BELONGINGS WITH PATIENT. ESCORTED TO CAR WITH PRIMARY NURSE AND THIS NURSE.
--- NOTE | 2024-04-04 13:59 | NUR ---
DISCHARGE INSTRUCTIONS REVIEWED, EX FER AT BEDSIDE. ALL QUESTIONS ANSWERED. IV AND TELEMETRY REMOVED. PATIENT ESCORTED OFF OF UNIT WITH PERSONAL BELONGINGS. LEFT VIA PRIVATE VEHICLE WITH EX .
--- NOTE | 2024-04-07 14:44 | NUR ---
CATHERINE received a call back from Nida at [employer] and reports they can call pt and offer beside commode. CATHERINE provided her info.
== END 2024-04-04 14:01 | disposition home or self-care (01) ==
LOC: COL.ER 15:45 → MEDICAL 19:05
PROVIDERS: Emergency Medicine; Nurse Practitioner Family; Physician Assistant; ADMIT Hospitalist
DX: I21.4 Non-ST elevation (NSTEMI) myocardial infarction (principal); I25.10 Atherosclerotic heart disease of native coronary artery without angina pectoris; E16.2 Hypoglycemia, unspecified; E87.6 Hypokalemia; I12.9 Hypertensive chronic kidney disease with stage 1 through stage 4 chronic kidney disease, or unspecified chronic kidney disease; N18.31 Chronic kidney disease, stage 3a; E87.20 Acidosis, unspecified; G89.29 Other chronic pain; E03.9 Hypothyroidism, unspecified; M54.9 Dorsalgia, unspecified; R53.81 Other malaise; F32.A Depression, unspecified; Z95.5 Presence of coronary angioplasty implant and graft; Z79.899 Other long term (current) drug therapy; Z79.82 Long term (current) use of aspirin; Z85.3 Personal history of malignant neoplasm of breast; Z90.5 Acquired absence of kidney; Z79.02 Long term (current) use of antithrombotics/antiplatelets; Z79.890 Hormone replacement therapy
CPT/HCPCS: G0378; J0360; J1650; J2270; J7030; Q9967

== ENCOUNTER 2024-04-12 10:55 | Emergency (ER) | payer MEDICARE, BC ==
[~2024-04-12] VITALS: Ht 152.4 cm; Wt 54.1 kg
[~2024-04-12 10:55] MED LIST changes: +ADALAT CC30 MG PO; +ATACAND8 MG PO; +BLUE-EMU LIDOC1 EACH TP; +MULTIPLE VITAMI1 CAP PO; +NATURAL IRON65 MG PO; +PERCOCET 325 MG1 TAB PO
[2024-04-12] MEDS ORDERED: Ondansetron 4 MG/2 ML VIAL IV PRN (11:30)
[2024-04-12] MEDS ORDERED: Morphine 4 MG/ML VIAL IV ONE (11:30)
[2024-04-12 11:43] LABS: BASO % 0.5 % (0.0-2.0); EOS # 0.2 K/mm3 (0.0-0.7); EOS % 2.8 % (0.0-4.0); GRAN % 60.9 % (42.2-75.2); HEMOGLOBIN 11.9 g/dl (12.5-16.0); LYMPH # 1.5 K/mm3 (1.2-3.4); LYMPH % 22.9 % (20.0-51.0); MEAN CELL VOLUME 98 fl (80.0-100.0); MEAN CORPUSCULAR HEMOGLOBIN 33 pg (27-31); MEAN CORPUSCULAR HGB CONC 33 g/dl (33.0-37.0); MEAN PLATELET VOLUME 13.7 fl (7.4-10.4); MONO # 0.8 K/mm3 (0.1-0.6); MONO % 12.1 % (1.7-9.3); PLATELET COUNT 143 K/mm3 (130-400); RED BLOOD COUNT 3.66 M/mm3 (4.10-5.30); REDCELL DISTRIBUTION WIDTH-CV 13.2 % (11.5-14.5)
[2024-04-12 11:50] LABS: HEMATOCRIT 35.7 % (37.0-47.0)
[2024-04-12 11:54] LABS: ALBUMIN 3.5 g/dL (3.4-4.8); BILIRUBIN,TOTAL 0.5 mg/dL (0.2-1.2); CALCIUM 9.5 mg/dL (8.4-10.2); CREATININE, serum 1.14 mg/dL (0.57-1.11); POTASSIUM 3.9 mEq/L (3.5-4.5); TOTAL PROTEIN 6.3 g/dl (6.2-8.1)
[2024-04-12 12:06] LABS: TROPONIN-I 0.046 ng/mL (0.00-0.033)
[2024-04-12 13:10] VITALS: BP 154/74; PULSE 74; TEMP 97.9
== END 2024-04-12 13:19 | disposition left against medical advice (07) ==
LOC: COL.ER 10:55
PROVIDERS: Personal Emergency Response Attendant
DX: R07.9 Chest pain, unspecified (principal); Z85.3 Personal history of malignant neoplasm of breast
CPT/HCPCS: J2270; J2405

== ENCOUNTER 2024-04-14 19:10 | Observation (INO) | payer MEDICARE, BC ==
[~2024-04-14] VITALS: Ht 152.4 cm; Wt 56.2 kg
[2024-04-14 22:10] LABS: BASO % 0.3 % (0.0-2.0); EOS # 0.2 K/mm3 (0.0-0.7); GRAN # 4.3 K/mm3 (1.4-6.5); GRAN % 61.4 % (42.2-75.2); HEMATOCRIT 37.5 % (37.0-47.0); HEMOGLOBIN 12.2 g/dl (12.5-16.0); LYMPH # 1.6 K/mm3 (1.2-3.4); LYMPH % 23.4 % (20.0-51.0); MEAN CELL VOLUME 100 fl (80.0-100.0); MEAN CORPUSCULAR HEMOGLOBIN 32 pg (27-31); MEAN CORPUSCULAR HGB CONC 33 g/dl (33.0-37.0); MEAN PLATELET VOLUME 13.4 fl (7.4-10.4); MONO # 0.8 K/mm3 (0.1-0.6); MONO % 11.3 % (1.7-9.3); PLATELET COUNT 160 K/mm3 (130-400); RED BLOOD COUNT 3.76 M/mm3 (4.10-5.30); REDCELL DISTRIBUTION WIDTH-CV 13.3 % (11.5-14.5)
[2024-04-14 22:13] LABS: PROTHROMBIN TIME 10.8 SECONDS (9.7-12.8)
[2024-04-14 22:16] LABS: PARTIAL THROMBOPLASTIN TIME 35.1 SECONDS (26.0-37.0)
[2024-04-14 22:25] LABS: ALBUMIN 3.9 g/dL (3.4-4.8); BILIRUBIN,TOTAL 0.4 mg/dL (0.2-1.2); CALCIUM 10.3 mg/dL (8.4-10.2); CREATININE, serum 1.45 mg/dL (0.57-1.11); POTASSIUM 4.2 mEq/L (3.5-4.5)
[2024-04-14 22:31] LABS: TROPONIN-I 0.026 ng/mL (0.00-0.033)
[2024-04-14] MEDS ORDERED: LR 1,000 ML IV ONE (23:15)
[2024-04-14] MEDS ORDERED: HYDROcodone/Acetaminophen 10-325 MG TAB PO ONE (23:15)
[2024-04-14] MEDS ORDERED: NIFEdipine XL 30 MG TAB PO ONE (23:30)
[2024-04-14] MEDS ORDERED: Carvedilol 6.25 MG TAB PO ONE (23:30)
[2024-04-15] VITALS (1108 sets, daily range): BP systolic 111–187; BP diastolic 49–89; PULSE 70–79; TEMP 97.8–98.6; O2SAT 78–100
[2024-04-15] MEDS ORDERED: Isosorbide Mononitrate CR (24-HR) 60 MG TAB PO ONE (00:30)
[2024-04-15] MEDS ORDERED: hydrALAZINE 20 MG/ML 1 ML VIAL IV ONE ×2 (01:00→03:00)
--- NOTE | 2024-04-15 02:10 | NUR ---
PT ON FLOOR FROM ED VIA WHEELCHAIR. PT REPORTS INCREASED BACK PAIN 3/10 AND AMBULATING TO BED STANDBY. PT ORIENTED TO ROOM, CALL LIGHT AND POLICIES AND VERBALIZED UNDERSTANDING. PT CHANGED INTO GOWN. PERSONAL BELONGINGS WITH CARDS AND GROVER PLACED IN CLOSET, PT ENCOURAGED TO HAVE IT TAKEN HOME BY SUPPORT IF POSSIBLE. 3 [facility] ON HOME MEDS BROUGHT IN BY PT. BP 187/80, PT DENIES HEADACHE OR CONCERNS OTHERS THAN BACK PAIN AT THIS TIME. PT DENIES NEEDS. BED IN LOWEST POSITION, CALL LIGHT IN REACH, BED ALARM ON.
[2024-04-15] MEDS ORDERED: NS 1,000 ML IV SCH (04:15)
[2024-04-15] MEDS ORDERED: HYDROcodone/Acetaminophen 10-325 MG TAB PO PRN (05:15)
--- NOTE | 2024-04-15 07:18 | NUR ---
Patient is laying in bed, resting with eyes closed. Overnight nurse reported she was anxious, in pain, and was upset about wait times. Will continue to monitor for significant changes in blood pressure concerns.
[2024-04-15] MEDS ORDERED: oxyCODONE/Acetaminophen 10-325 MG TAB PO PRN (07:45)
[2024-04-15] MEDS ORDERED: Carvedilol 6.25 MG TAB PO SCH (08:00)
[2024-04-15] MEDS ORDERED: [UNRECOGNIZED DRUG - REMARK] PO SCH (09:00)
[2024-04-15] MEDS ORDERED: Losartan 50 MG TAB PO SCH (09:00)
[2024-04-15] MEDS ORDERED: Lidocaine 4% Topical Patch TP SCH (09:00)
[2024-04-15] MEDS ORDERED: Multivitamin TAB PO SCH (09:00)
[2024-04-15] MEDS ORDERED: buPROPion XL (24-HR) 150 MG TAB PO SCH (09:00)
[2024-04-15] MEDS ORDERED: Clopidogrel 75 MG TAB PO SCH (09:00)
[2024-04-15] MEDS ORDERED: NIFEdipine XL 30 MG TAB PO SCH (09:00)
--- NOTE | 2024-04-15 12:05 | NUR ---
SW team emailed referrals to [facility], [facility], and V. Referrals were faxed to: [facility], [facility], [facility], [facility], [facility], [facility], [facility], [facility], [facility], [facility], and [facility]. [facility] and [facility] inform they have no beds. Discharge Plan: LTC- Medicaid pending
--- NOTE | 2024-04-15 13:11 | NUR ---
construction pit worker contacted Manohar from [facility] to discuss how patient has been at home. Per Home health OT notes, patient's home is cluttered and patient side steps with her cane. Patient has a consulting manager to grab clothing and other items that are difficult to reach on her own but patient refuses to put the consulting manager in the area OT has guided her to put it so that she can use it. OT noted patient would "benefit from higher level of care." While SW was discussing this with [facility], patient was being transferred from bed to toilet and was crying out in pain and could be heard outside of her room. SW confirmed with SORAYA Mikeprint project manager, that patient does not qualify for inpatient at this time. construction pit worker met with patient to discuss discharge plan. Patient stated that the hospital made her back pain worse. SW asked how that happened. Patient stated she had to sit in a wheelchair that was "concaved" for an hour and half. SW addressed patient's chronic back pain that has brought her to the ER numerous times over the last couple months. Patient stated that her pain was worse now and knows that the hospital caused it. Patient asked what legal actions can be done because the hospital made her worse. SW explained she would speak with the ecological risk assessor. Patient stated okay. Patient stated that with her back pain this severe she would not be able to return home. SW discussed how patient is currently in observation status and is not qualifying for inpatient status. Patient stated "well can you just change that." SW explained that they are not able to change patient to inpatient unless she qualifies per Medicare guidelines otherwise that would be considered Medicare fraud. Patient understood. SW explained that since patient is in observation status, her Medicare would not cover a rehab stay in a nursing facility so her options are to return home with home health and private pay caregivers or private pay at a nursing facility. SW explained another option would be stay with family as if she remembers correctly she was going to move into Matthew's home. Patient stated she cannot return home and cannot private pay in a nursing facility. Patient explained she is not able to stay with Matthew has he works out of town often and his also works so they have been looking at assisted living. SW explained if patient cannot return home then she could look at intermediate placement with Medicaid pending. SW explained patient's social security income would go to the nursing facility except for around $62. Patient complained about having to pay this for a minute then was in agreement to send referrals. SW explained as patient would be medicaid pending she would be sending what they call a "mass referral" and what that means is most local facilities cannot take Medicaid pending at this time, so they need to send to outside of [place]. Patient understood and would like to look around [facility] because her son lives there. SW explained she would do so. SW explained she would updated Matthew on this as well. SW explained she would request financial counseling to come assist with the Medicaid Application. Patient stated she believes she completed one with the clinical social work therapist at her PCP office. SW explained she would obtain the Medicaid linda and send that with the referrals. SW explained if she did not complete one she would request financial counseling to assist with the medicaid application. Patient understood. Patient asked if she improved if she would be able to return with assistance in the home. SW explained they discussed this during the last visit and her family expressed they were unable to pay for 24/7 care but could pay for an hour each day but that would have been up to them to get established. Patient understood. SW explained once patient sells her home she would be disqualified for Medicaid and those funds would need to go to the intermediate until she qualifies again for medicaid. Patient understood. Patient was here recently, SW reviewed patient's previous notes. PCP is Dr. Cruz. Pharmacy is [facility] and at that time patient did not have issues affording medications. Insurance is Medicare A and B, BCBS and medicaid pending. DME is a cane and walker but patient's home is cluttered and has been unable to use her walker in the home. Patient has [facility] paid through Medicare and it was discussed during the last hospital stay about getting private pay caregivers. CATHERINE spoke with Matthew, patient's son, about all of the above information. Matthew is in agreement with placement and understood that once patient sells her home she would need to private pay the facility until she would qualify again for Medicaid. Matthew would like referrals sent around [facility] if possible but understands patient would be placed in the facility that is able to accept her with Medicaid pending. While speaking with Matthew clinical social work therapist was notified by patient's nurse that patient was requesting to speak with her. CATHERINE met with patient with aMtthew on speaker phone. Patient stated that she was doing much better now that they removed the "paper" from the bed. Patient means the shelly from her bed. CATHERINE notes this conversation occurred around 15 minutes after the initial conversation with patient where she stated she could not return home. Patient stated her back pain was back to normal and she feels that if she continues to improve she may be able to return home. CATHERINE explained that she is concerned because she has been to the hospital many times in the last couple months. Patient stated that this was different because it was due to her blood pressure. Matthew stated he wanted patient to continue with placement or continue to consider it because he worries patient is unable to care for herself properly at home and that she may not be taking her medications as prescribed. Patient was in agreement with continuing with placement. CATHERINE left a voicemail with patient's PCP clinical social work therapist, Judy Brenner, for the Medicaid application. CATHERINE contacted social jillian Bruno at PCP office. Kiana reported Judy is not in the office and could not locate the Medicaid Application and offered it may be done at the area agency of aging. CATHERINE left a voicemail with area agency on aging. CATHERINE Garcia faxed referrals to [facility], [facility], [facility], [facility], [facility], [facility], [place], [facility], [facility], [facility], [facility], [place], [facility], [facility] rehab and [facility]. CATHERINE received a call from [facility] and was notified they would like the Medicaid application. CATHERINE explained she was waiting to get a copy from the PCP or area agency. CATHERINE received a call from [facility] is still reviewing the application but wanted information on patient's PCP and if she would be LTC or skilled. CATHERINE explained enrique would be LTC medicaid pending at this time. CATHERINE received a call from [facility] whom expressed they would be sending an application to fill out for their facility to clinical social work therapist's fax. CATHERINE [facility] a [facility] to set up a televisit to screen patient for placement in their facility. Christian Limon is going to call the clinical social work therapist with his ZOOM info once set up. Discharge plan: LTC
--- NOTE | 2024-04-15 15:22 | NUR ---
cooler worker was notified [facility] is full but they offered to send referral to their sister location, [facility]. CATHERINE explained patient was hoping to stay close to [facility] so she would need to check with the family. CATHERINE scheduled televisit with Prashanth Limon for tomorrow 04/16/24 at 10 am via ZOOM. Christian from Prashanth Limon stated he would send the invite via email to the social insurance adviser. CATHERINE received a voicemail from [facility]. CATHERINE returned call but was not able to reach [facility]. CATHERINE left voicemail. CATHERINE met with patient and provided the Medicare.gov list of nursing facilities around [place]. CATHERINE explained she has sent a referral to all of those located on that list. CATHERINE provided update that Prashanth Limon is going to have a televisit with patient tomorrow at 10 am via ZOOM. Patient understood and thanked the social insurance adviser. Discharge plan: LTC
--- NOTE | 2024-04-15 16:22 | NUR ---
broke worker was notified by [facility] that their nursing stated they could meet patient's medical needs but they are still reviewing financial needs. SW explained they were trying to locate patient's Medicaid application but once they have that they will send to the facility. [facility] reported that they have been in contact with Matthew and he is working on some information needed for their application. CATHERINE faxed clinical updates to [facility]. Discharge plan: LTC
[2024-04-15] MEDS ORDERED: lamoTRIgine 25 MG TAB PO SCH (21:00)
[2024-04-15] MEDS ORDERED: Isosorbide Mononitrate CR (24-HR) 60 MG TAB PO SCH (21:00)
[2024-04-15] MEDS ORDERED: Donepezil 5 MG TAB PO SCH (21:00)
[2024-04-15] MEDS ORDERED: Ferrous Sulfate 325 MG TAB PO SCH (21:00)
[2024-04-15] MEDS ORDERED: Pravastatin 20 MG TAB PO SCH (21:00)
--- NOTE | 2024-04-15 21:00 | NUR ---
PT RESTING IN CHAIR UPON ENTERING. INT TO RIGHT HAND PATENT. PT UPDATED ON NPO AT MIDNIGHT FOR PROCEDURE ON 04/16 AND VERBALIZED UNDERSTANDING. PT REPORTS BACK PAIN, PRN GIVEN. PT DENIES NEEDS AT THIS TIME. CHAIR ALARM ON, CALL LIGHT IN REACH.
[2024-04-15] MEDS ORDERED: Polyethylene Glycol 3350 17 GM PDS PO SCH (22:15)
[2024-04-16] VITALS (554 sets, daily range): BP systolic 118–176; BP diastolic 51–86; PULSE 62–87; TEMP 97.3–98.4; O2SAT 64–100
[2024-04-16] MEDS ORDERED: hydrALAZINE 20 MG/ML 1 ML VIAL IV PRN (00:15)
[2024-04-16 06:10] LABS: BASO % 0.3 % (0.0-2.0); EOS # 0.2 K/mm3 (0.0-0.7); EOS % 3.1 % (0.0-4.0); GRAN # 3.6 K/mm3 (1.4-6.5); GRAN % 62.6 % (42.2-75.2); LYMPH # 1.2 K/mm3 (1.2-3.4); LYMPH % 20.7 % (20.0-51.0); MEAN CELL VOLUME 96 fl (80.0-100.0); MEAN CORPUSCULAR HGB CONC 34 g/dl (33.0-37.0); MEAN PLATELET VOLUME 13.3 fl (7.4-10.4); MONO # 0.8 K/mm3 (0.1-0.6); PLATELET COUNT 145 K/mm3 (130-400); RED BLOOD COUNT 3.07 M/mm3 (4.10-5.30); REDCELL DISTRIBUTION WIDTH-CV 13.4 % (11.5-14.5)
[2024-04-16 06:19] LABS: HEMATOCRIT 29.6 % (37.0-47.0); MEAN CORPUSCULAR HEMOGLOBIN 33 pg (27-31)
[2024-04-16 06:24] LABS: CALCIUM 8.8 mg/dL (8.4-10.2); CREATININE, serum 0.94 mg/dL (0.57-1.11); POTASSIUM 3.4 mEq/L (3.5-4.5)
--- NOTE | 2024-04-16 09:27 | NUR ---
electroplating worker attempted to contact Judy Brenner, electroplating worker at [facility]. No answer. CATHERINE called Kiana with social work at [facility] whom expressed Judy was out of the office. CATHERINE asked if Kiana is able to contact Judy on her personal phone as they are needing to know if a Medicaid application has been completed for placement. CATHERINE explained she called [facility] and [facility] but neither of them have completed them. Kiana was able to get in contact with Judy whom expressed patient had not completed a Medicaid linda with them but her son and she were completing DPOA-HC last week. CATHERINE contacted Yudy with financial counseling and requested she meet with patient this morning as placement needs a copy of the medicaid application. Yudy stated she would meet with the patient. CATHERINE contacted patient's son, Matthew, to provide update on the discharge plan. CATHERINE explained she was notified patient has a stress test today. CATHERINE explained patient has a couple agencies that are interested in her but have not fully accepted yet and that is [facility] in [place] and [facility] in [place]. Matthew reported his preference would be [facility] because patient would have several family members and friends that are in the area to visit with her. Matthew has been in contact with [facility] and is working on completing application information for them. Matthew reported he has a DPOA-HC and living will for patient that was notarized on Sunday. Matthew is going to email a copy of the forms to the patient. CATHERINE explained patient did not complete a medicaid application but she is requesting our financial counselor at the hospital to complete one and she will send it to the facility. Matthew stated he came to the hospital last night to speak with patient and get insurance cards that were requested by the [facility]. Matthew stated patient initially was talking about how she may be able to return home since he helped clean part of her living room on Sunday. Matthew explained they had a long conversation and patient was in agreement with placement because her health continues to deteriorate and her support system is not local anymore. Discharge plan: LTC with Medicare B rehab
[2024-04-16] MEDS ORDERED: *Potassium Replacement Protocol MC SCH (11:45)
[2024-04-16] MEDS ORDERED: Potassium Bicarbonate/Citrate 20 MEQ Effervescent TAB PO SCH (11:45)
[2024-04-16] MEDS ORDERED: Regadenoson 0.08 MG/ML 5 ML SYRINGE IV ONE (13:11)
--- NOTE | 2024-04-16 13:26 | NUR ---
Patient to stress test from [id number].
--- NOTE | 2024-04-16 16:15 | NUR ---
Report given on Ms. Clark to be transferred to Surgical room 348. VSS, afebrile. Belongings, cane, paperwork, cell phone/computer scientist, purse, and jacket were escorted upstairs with patient via wheelchair. IV intact, no further compliants at this time.
--- NOTE | 2024-04-16 18:08 | NUR ---
s iron worker spoke with patient and updated her on the status of her placement options. Patient is still in agreement with LTC placement with Medicare B therapies. First preference is [facility] and Matthew, son, is working to complete the application they requested. CATHERINE faxed clinical updates to [facility], [facility], [facility], [facility], [facility], [facility] and [facility]. CATHERINE received a voicemail from [facility] stating they have a room available but patient would have a roommate and wanted to verify patient/family would be okay with that, they would also need a financial application completed and a local primary care physician. CATHERINE provided this information to Matthew via email and will follow up tomorrow. CATHERINE received DPOA-HC, living will, insurance cards and SSI information from Matthew. CATHERINE faxed this information to the facilities. CATHERINE will follow up with financial counseling tomorrow for a copy of the Medicaid application to send to the facilities. Discharge plan: LTC (medicaid pending) with Medicare part B therapies
[2024-04-17] VITALS (9 sets, daily range): BP systolic 111–168; BP diastolic 51–79; PULSE 71–79; TEMP 97.3–98.4
--- NOTE | 2024-04-17 02:40 | NUR ---
pt awake resting in bed. reports having pain in her back but is "comfortable" for now. pt denies needs at this time. call light in reach.
[2024-04-17 06:15] LABS: BASO % 0.6 % (0.0-2.0); EOS # 0.2 K/mm3 (0.0-0.7); EOS % 2.8 % (0.0-4.0); GRAN # 3.3 K/mm3 (1.4-6.5); GRAN % 60.9 % (42.2-75.2); HEMOGLOBIN 11.1 g/dl (12.5-16.0); LYMPH # 1.1 K/mm3 (1.2-3.4); LYMPH % 20.6 % (20.0-51.0); MEAN CELL VOLUME 96 fl (80.0-100.0); MEAN CORPUSCULAR HEMOGLOBIN 32 pg (27-31); MEAN CORPUSCULAR HGB CONC 33 g/dl (33.0-37.0); MONO # 0.8 K/mm3 (0.1-0.6); MONO % 14.7 % (1.7-9.3); PLATELET COUNT 159 K/mm3 (130-400); RED BLOOD COUNT 3.46 M/mm3 (4.10-5.30); REDCELL DISTRIBUTION WIDTH-CV 13.6 % (11.5-14.5)
[2024-04-17 06:20] LABS: HEMATOCRIT 33.3 % (37.0-47.0)
[2024-04-17 06:36] LABS: CALCIUM 9.2 mg/dL (8.4-10.2); CREATININE, serum 0.98 mg/dL (0.57-1.11); POTASSIUM 3.7 mEq/L (3.5-4.5)
[2024-04-17] MEDS ORDERED: Potassium Bicarbonate/Citrate 20 MEQ Effervescent TAB PO SCH (07:15)
--- NOTE | 2024-04-17 07:30 | NUR ---
Patient laying in bed sleeping on left side. Easily awakened with verbal command. A&Ox4. VSS. IV CDI. Reports having back pain, pain medication given by prior nurse. Call light within reach. Bed alarm on
--- NOTE | 2024-04-17 11:31 | NUR ---
CATHERINE notified by CATHERINE Cee that [facility], that [facility] is assessing and requires patient to have a local PCP, and that [facility] in [place] is interested as well. CATHERINE met with patient to review referral status. Patient asked "Do I have to stay there?" CATHERINE informed patient that at this time she is unsafe to return home alone and that medical team as well as her son are all in agreement. Patient voiced agreement as well. She was given the referral status on the above facilities. She questioned how she will get her clothes and belongings from home. CATHERINE informed that her family would have to assist with that. Patient voicing frustration and appears overwhelmed. CATHERINE informed patient that she will be given time to process this information while she is eating lunch and CATHERINE and CATHERINE Cee will return later today to discuss. Patient agreeable. Discharge plan: LTC
--- NOTE | 2024-04-17 12:25 | NUR ---
reworker was notified by [facility] that they have a bed available but patient would need to private pay until the Medicaid is approved. CATHERINE encouraged them to speak with the patient's son but expressed she was informed previously that they could not private pay and would need to be Medicaid pendng. Park from [facility] explained they would look more into this and be in contact with the son. CATHERINE was notified by [facility] that they would be able to accept patient. They would need a care assessment and the Medicaid application. CATHERINE requested the Medicaid application from Y[facility] financial counseling. CATHERINE updated Hemalatha, main surgical social work nurse. CATHERINE received a call from [facility] whom reported they are waiting on a couple financial pieces. They need the Medicaid application. CATHERINE received from [employer] counseling and emailed to Mesha at [facility] at [email or web address]. Mesha reported they should be able to give the social work nurse an offical yes or no before 2 pm today as they understand they have another facility willing to accept pending Medicaid linda and care assessment. They will also need a care assessment completed. CATHERINE and CATHERINE Penny spoke with patient and updated her. Patient is agreeable to [facility] but would prefer [facility] as her family is in [place] and this is a ad terminal makeup operator care placement. CATHERINE will keep her updated.
--- NOTE | 2024-04-17 14:58 | NUR ---
CATHERINE Cee received call back from [facility] in [place] declining patient for admission. CATHERINE Cee spoke with patient's son Matthew to inform of [facility] decision and plan to discharge patient to [facility]. CATHERINE talked with patient to update on acceptance and plan to transfer to [facility]. Patient more calm and accepting of situation and agreeable to transfer. CATHERINE called [facility] Left message for return call to coordinate transfer. Discharge plan: [facility]
--- NOTE | 2024-04-17 15:37 | NUR ---
SW completed CARE Assessment with pt. Copy provided, copy in chart, and document uploaded to CARE portal. Pt was agreeable to discharge to [facility]. She had no further questions/concerns. Discharge Plan: [facility]
--- NOTE | 2024-04-17 21:05 | NUR ---
Received report from SORAYA Horta. Pt is alert and does not look in distress at this time. No drips or IVF's running at this time. Pt is currently in bed with bed in low position, bed alarms on, and call light within reach. Will continue with pt care.
[2024-04-18] VITALS (7 sets, daily range): BP systolic 127–177; BP diastolic 60–75; PULSE 70–87; TEMP 97.7–98
--- NOTE | 2024-04-18 06:21 | NUR ---
Pt had an uneventful night. Pt did not need any PRN BP meds throughout this shift. Pt has complained of some back pain and PRN pain meds have been given per EMAR. No drips or IVF's are running at this time. Pt is currently in bed, bed in low position, and call light within reach. Will give report to day shift nurse.
[2024-04-18 06:22] LABS: BASO % 0.3 % (0.0-2.0); EOS # 0.2 K/mm3 (0.0-0.7); EOS % 2.5 % (0.0-4.0); GRAN # 4.3 K/mm3 (1.4-6.5); GRAN % 62.9 % (42.2-75.2); HEMOGLOBIN 10.5 g/dl (12.5-16.0); LYMPH # 1.5 K/mm3 (1.2-3.4); LYMPH % 21.4 % (20.0-51.0); MEAN CELL VOLUME 96 fl (80.0-100.0); MEAN CORPUSCULAR HEMOGLOBIN 32 pg (27-31); MEAN CORPUSCULAR HGB CONC 33 g/dl (33.0-37.0); MEAN PLATELET VOLUME 13.2 fl (7.4-10.4); MONO # 0.9 K/mm3 (0.1-0.6); MONO % 12.5 % (1.7-9.3); PLATELET COUNT 166 K/mm3 (130-400); RED BLOOD COUNT 3.29 M/mm3 (4.10-5.30); REDCELL DISTRIBUTION WIDTH-CV 13.8 % (11.5-14.5)
[2024-04-18 06:23] LABS: HEMATOCRIT 31.7 % (37.0-47.0)
[2024-04-18 06:40] LABS: CREATININE, serum 1.03 mg/dL (0.57-1.11); POTASSIUM 3.6 mEq/L (3.5-4.5)
[2024-04-18] MEDS ORDERED: Potassium Bicarbonate/Citrate 20 MEQ Effervescent TAB PO SCH (07:30)
--- NOTE | 2024-04-18 08:00 | NUR ---
Patient called out requesting pain medications. Patient reports her sleeping positioning increased her pain. Patient up to the bathroom, voided. Stand by assisted with walker. Patient hesitant, but agreeable to sit up in chair. Positioned with pillows and warm blanket. Breakfast tray set up, deneis nausea. She took am medications without problems. Call [facility] in reach. Denies other needs.
--- NOTE | 2024-04-18 10:38 | NUR ---
Patient resting in bed. She reports her back is still hurting. Kpad set up as an alernative to more narcotic medications. Warm blankets and pillows. Deneis other needs. Call light in reach
[2024-04-18] MEDS ORDERED: BLUE-EMU LIDOC1 EACH TP (10:54)
[2024-04-18] MEDS ORDERED: NITROSTAT0.4 MG/TAB SL (10:54)
[2024-04-18] MEDS ORDERED: MULTI VITAMINS1 TAB PO (10:54)
[2024-04-18] MEDS ORDERED: NORCO 325 MG-101 TAB PO (10:57)
--- NOTE | 2024-04-18 15:25 | NUR ---
Patient given all discharge education. Patient son also present for discharge education. We reviewed medication list, with last dose taken and new prescriptions. We reviewed narcotics and last dose taken with medication safety and importance of taking as directed. Follow up appt reviewed. Int dc. Patient assisted with dressing. Wheeled out with all belongings, her son taking her home.
--- NOTE | 2024-04-18 16:17 | NUR ---
geothermal sheet metal worker was informed pt will discharge to [facility] on Sunday. CATHERINE met with pt per her request from RN. Pt reports she had a family meeting and they all decided she cannot afford to go to [facility] facility. SW advised she will discuss with her son to ensure they discussed. Son, Matthew later arrived and requested to speak with SW. CATHERINE and Dr. Figueroa conducted rounding with son and patient. Son expressed they did have a family meeting and cannot afford to have pt LTC due to still having a mortgage and other bills, along with "thousand dollar credit cards." CATHERINE and Dr. Figueroa listened to this and SW attempted to provide additional support and information. Matthew reports they simply cannot afford it. He intends to assist her with cleaning the house to sell, then spending down the money from the earned house income for her to be in a alf or "low income apt." SW advised this is not the hospital's reccomendation and pt needs further care, support, and supervision. Son reports pt will stay with him in [facility] with Home Health and they have many family/friends nearby very close to assist. CATHERINE provided Medicare.gov list of HH agencies in the [facility] per son. Son requested the Pain Doctor services and CATHERINE called sandra Rosas and left a voicemail. Son was informed of this and will complete necessary items at the bank. No further needs. [facility] [place]. Son called CATHERINE and chose [facility]. SW faxed referral and discharge orders to them. CATHERINE informed [facility] that pt/family did not want to go to them and will go home at this time. Discharge Plan: home with [facility]
--- NOTE | 2024-04-21 13:16 | NUR ---
CATHERINE received a call from son, Matthew reporting that a has not reached out and he wanted them to coordinate with his , Ramin Juan [phone]. CATHERINE called Noemi who reports it was sent over to the [place] office. CATHERINE called [phone] and they report she is working on it now and will reach out today. CATHERINE provided son's 's number to reach out and obtain address.
== END 2024-04-18 15:33 | disposition home health service (06) ==
LOC: COL.ER 19:10 → SURG 04-15 01:41 → ICU 04-15 01:41 → SURG 04-16 15:59
PROVIDERS: Emergency Medicine; Nurse Practitioner Family; Physician Assistant; ADMIT Internal Medicine
DX: I16.0 Hypertensive urgency (principal); I47.29 Other ventricular tachycardia; I25.10 Atherosclerotic heart disease of native coronary artery without angina pectoris; I12.9 Hypertensive chronic kidney disease with stage 1 through stage 4 chronic kidney disease, or unspecified chronic kidney disease; N18.31 Chronic kidney disease, stage 3a; N17.9 Acute kidney failure, unspecified; I21.4 Non-ST elevation (NSTEMI) myocardial infarction; D64.9 Anemia, unspecified; E83.52 Hypercalcemia; E03.9 Hypothyroidism, unspecified; F32.A Depression, unspecified; R41.9 Unspecified symptoms and signs involving cognitive functions and awareness; M48.54XA Collapsed vertebra, not elsewhere classified, thoracic region, initial encounter for fracture; G89.29 Other chronic pain; R53.81 Other malaise; Z95.5 Presence of coronary angioplasty implant and graft; Z79.82 Long term (current) use of aspirin; Z79.890 Hormone replacement therapy; Z79.899 Other long term (current) drug therapy
CPT/HCPCS: A9500-JZ; G0378; J0360; J2785; J7030; J7120